=== PATIENT | male | born 1975 | race Caucasian/White ===

== ENCOUNTER 2017-11-22 11:36 | Inpatient (IN) | payer BC ==
[2017-11-22] MEDS ORDERED: Pantoprazole 40 MG Vial IVPUSH ONE (11:46)
[2017-11-22] MEDS ORDERED: Morphine 2 MG/ML Syringe IVPUSH ONE (11:46)
[2017-11-22] MEDS ORDERED: Sodium Chloride 0.9% 1,000 ML IV ONE (11:46)
[2017-11-22] MEDS ORDERED: Aspirin 81 MG Tab.Chew PO ONE (11:46)
--- NOTE | 2017-11-22 11:49 | EDM.PDOC ---
ED HPI GENERAL MEDICAL PROBLEM - General Chief Complaint: Abdominal Pain Stated Complaint: UPPER ABD PAIN Time Seen by Provider: 11/22/17 11:48 Source of Information: Reports: Patient - History of Present Illness INITIAL COMMENTS - FREE TEXT/NARRATIVE: HISTORY AND PHYSICAL: History of present illness: [Patient presents with epigastric pain 8 out of 10 knee is slightly diaphoretic on arrival with some nausea no vomiting chills sweats no actual chest pain shortness of breath headache dizziness or palpitation no bowel or urine symptoms ] Review of systems: As per history of present illness and below otherwise all systems reviewed and negative. Past medical history: As per history of present illness and as reviewed below otherwise noncontributory. Surgical history: As per history of present illness and as reviewed below otherwise noncontributory. Social history: No reported history of drug or alcohol abuse. Family history: As per history of present illness and as reviewed below otherwise noncontributory. Physical exam: HEENT: Atraumatic, normocephalic, pupils reactive, negative for conjunctival pallor or scleral icterus, mucous membranes moist, throat clear, neck supple, nontender, trachea midline. Lungs: Clear to auscultation, breath sounds equal bilaterally, chest nontender. Heart: S1S2, regular, negative for clicks, rubs, or JVD. Abdomen: Soft, nondistended, multifocal tenderness on deep palpation Negative for masses or hepatosplenomegaly. Negative for costovertebral tenderness. Pelvis: Stable nontender. Genitourinary: Deferred. Rectal: Deferred. Extremities: Atraumatic, negative for cords or calf pain. Neurovascular unremarkable. Neuro: Awake, alert, oriented. Cranial nerves II through XII unremarkable. Cerebellum unremarkable. Motor and sensory unremarkable throughout. Exam nonfocal. Diagnostics: [CBC CMP lipase troponin EKG Chest 1 view ] Therapeutics: [Normal saline bolus Aspirin 324 mg chewable Morphine 2 mg IV ] Impression: Cholelithiasis [Epigastric pain] Definitive disposition and diagnosis as appropriate pending reevaluation and review of above. Upper Abdomen Pain Score (Numeric/FACES): 4 - Related Data Allergies Allergy/AdvReac Type Severity Reaction Status Date / Time No Known Allergies Allergy Verified 11/22/17 12:09 Home Meds: Home Meds . [No Known Home Meds] 11/22/17 [History] ED ROS GENERAL - Review of Systems Review Of Systems: ROS reveals no pertinent complaints other than HPI. ED EXAM, GENERAL - Physical Exam Exam: See Below Course - Vital Signs Last Recorded V/S: Last Vital Signs Temp 97.1 F 11/22/17 12:27 Pulse 81 11/22/17 12:27 Resp 18 11/22/17 12:27 BP 144/81 H 11/22/17 12:27 Pulse Ox 100 11/22/17 12:27 - Orders/Labs/Meds Orders: Active Orders 24 hr Category Date Time Status EKG Documentation Completion [RC] STAT Care 11/22/17 11:45 Active Abdomen Ltd [US] Stat Exams 11/22/17 13:39 Ordered Nitroglycerin [Nitrostat] Med 11/22/17 12:15 Active 0.4 mg SL Q5M PRN Sodium Chloride 0.9% [Normal Saline] 1,000 ml Med 11/22/17 14:00 Active IV STAT Medication Orders Sodium Chloride (Normal Saline) 1,000 mls @ 125 mls/hr IV STAT KAREN Nitroglycerin (Nitrostat) 0.4 mg SL Q5M PRN PRN Reason: Chest Pain Last Admin: 11/22/17 12:24 Dose: 0.4 mg Admin: 11/22/17 12:19 Dose: 0.4 mg Labs: Laboratory Tests 11/22/17 11/22/17 11/22/17 Range/Units 11:59 11:59 13:19 WBC 16.18 H (4.0-11.0) K/uL RBC 4.91 (4.50-5.90) M/uL Hgb 15.6 (13.0-17.0) g/dL Hct 44.7 (38.0-50.0) % MCV 91.0 (80.0-98.0) fL MCH 31.8 (27.0-32.0) pg MCHC 34.9 (31.0-37.0) g/dL RDW Std Deviation 45.2 (28.0-62.0) fl RDW Coeff of Royal 14 (11.0-15.0) % Plt Count 279 (150-400) K/uL MPV 9.70 (7.40-12.00) fL Neut % (Auto) 82.4 H (48.0-80.0) % Lymph % (Auto) 13.4 L (16.0-40.0) % [place] % (Auto) 3.8 (0.0-15.0) % Eos % (Auto) 0.2 (0.0-7.0) % Baso % (Auto) 0.2 (0.0-1.5) % Neut # (Auto) 13.3 H (1.4-5.7) K/uL Lymph # (Auto) 2.2 (0.6-2.4) K/uL [place] # (Auto) 0.6 (0.0-0.8) K/uL Eos # (Auto) 0.0 (0.0-0.7) K/uL Baso # (Auto) 0.0 (0.0-0.1) K/uL Nucleated RBC % 0.0 /100WBC Nucleated RBCs # 0 K/uL Sodium 136 (136-148) mmol/L Potassium 4.2 (3.5-5.1) mmol/L Chloride 100 (98-107) mmol/L Carbon Dioxide 27.9 (21.0-32.0) mmol/L BUN 11 (7.0-18.0) mg/dL Creatinine 0.8 (0.8-1.3) mg/dL Est Cr Clr Drug Dosing 146.17 mL/min Estimated GFR (MDRD) > 60.0 ml/min Glucose 108 H (74-106) mg/dL Calcium 9.1 (8.5-10.1) mg/dL Total Bilirubin 0.4 (0.2-1.0) mg/dL AST 34 (15-37) IU/L ALT 60 (14-63) IU/L Alkaline Phosphatase 46 (46-116) U/L Troponin I < 0.050 (0.000-0.056) ng/mL Total Protein 7.6 (6.4-8.2) g/dL Albumin 4.3 (3.4-5.0) g/dL Globulin 3.3 (2.0-3.5) g/dL Albumin/Globulin Ratio 1.3 (1.3-2.8) Lipase 110 (73-393) U/L Urine Color ORANGE Urine Appearance CLEAR Urine pH 8.0 (5.0-8.0) Ur Specific [place]ek 1.010 (1.001-1.035) Urine Protein NEGATIVE (NEGATIVE) mg/dL Urine Glucose (UA) NEGATIVE (NEGATIVE) mg/dL Urine Ketones 15 H (NEGATIVE) mg/dL Urine Occult Blood NEGATIVE (NEGATIVE) Urine Nitrite NEGATIVE (NEGATIVE) Urine Bilirubin NEGATIVE (NEGATIVE) Urine Urobilinogen 0.2 (<2.0) EU/dL Ur Leukocyte Esterase NEGATIVE (NEGATIVE) Urine RBC 0-1 (0-2/HPF) Urine WBC 0-1 (0-5/HPF) Ur Epithelial Cells RARE (NONE-FEW) Urine Bacteria RARE (NEGATIVE) Meds: Medications Generic Name Dose Route Start Last Admin Trade Name Freq PRN Reason Stop Dose Admin Sodium Chloride 1,000 mls @ 125 mls/hr 11/22/17 14:00 Normal Saline IV STAT KAREN Nitroglycerin 0.4 mg 11/22/17 12:15 11/22/17 12:24 Nitrostat SL 0.4 mg Q5M PRN Administration Chest Pain Discontinued Medications Generic Name Dose Route Start Last Admin Trade Name Freq PRN Reason Stop Dose Admin Aspirin 324 mg 11/22/17 11:46 11/22/17 12:01 Aspirin PO 11/22/17 11:47 324 mg ONETIME ONE Administration Sodium Chloride 1,000 mls @ 999 mls/hr 11/22/17 11:46 11/22/17 12:02 Normal Saline IV 11/22/17 12:46 999 mls/hr STAT ONE Administration Iopamidol 100 ml 11/22/17 13:07 11/22/17 13:08 Isovue Multipack-370 (76%) IVPUSH 11/22/17 13:08 100 ml ONETIME STA Administration Ketorolac Tromethamine 30 mg 11/22/17 13:51 Toradol IVPUSH 11/22/17 13:52 ONETIME ONE Morphine Sulfate 2 mg 11/22/17 11:46 11/22/17 13:06 Morphine IVPUSH 11/22/17 11:47 Not Given ONETIME ONE Pantoprazole Sodium 80 mg 11/22/17 11:46 11/22/17 12:02 Protonix Iv IVPUSH 11/22/17 11:47 80 mg .BOLUS ONE Administration Departure - Departure Time of Disposition: 14:02 Disposition: Refer to Observation Condition: Fair Clinical Impression: Cholelithiasis - Discharge Information Referrals: Naomie,Erika A, [employer] [Primary Care Provider] - Forms: ED Department Discharge - My Orders Last 24 Hours: My Active Orders 11/22/17 11:45 EKG Documentation Completion [RC] STAT 11/22/17 12:15 Nitroglycerin [Nitrostat] 0.4 mg SL Q5M PRN 11/22/17 13:39 Abdomen Ltd [US] Stat 11/22/17 14:00 Sodium Chloride 0.9% [Normal Saline] 1,000 ml IV STAT - Assessment/Plan Last 24 Hours: My Active Orders 11/22/17 11:45 EKG Documentation Completion [RC] STAT 11/22/17 12:15 Nitroglycerin [Nitrostat] 0.4 mg SL Q5M PRN 11/22/17 13:39 Abdomen Ltd [US] Stat 11/22/17 14:00 Sodium Chloride 0.9% [Normal Saline] 1,000 ml IV STAT
[2017-11-22] MEDS: Nitroglycerin 0.4 MG Tab.SL SL PRN ×2 (12:19→12:24)
--- NOTE | 2017-11-22 12:25 | CR ---
EXAMINATION: Portable chest radiograph. HISTORY: Pain. FINDINGS: The trachea is midline. The cardiomediastinal silhouette is within normal limits. No pulmonary infilt rates, effusions or pneumothorax. Osseous structures appear unremarkable. IMPRESSION: No acute cardiopulmonary process.
[2017-11-22 12:31] LABS: CHLORIDE,CL 100 mmol/L (98-107); SODIUM,NA 136 mmol/L (136-148)
[2017-11-22] MEDS ORDERED: Iopamidol 755 MG/ML 500 ML Multipack Bottle IVPUSH STA (13:07)
--- NOTE | 2017-11-22 13:32 | CT ---
CT of the abdomen and pelvis with contrast. HISTORY: Pain TECHNIQUE: Axial CT images were obtained of the abdomen and pelvis following administration of Isovue -370 without complication. Coronal and sagittal reconstructions obtained. FINDINGS: The lung bases are clear. No pleural effusion or pneumothorax. The liver, spleen, adrenal glands, and pancreas appear normal. Cholelithiasis without evidence of cho lecystitis. No bulky retroperitoneal lymphadenopathy or abdominal ascites. The kidneys enhance and function symmetrically without evidence of obstructive uropathy. The large and small bowel are normal in caliber without evidence of obstruction. No focal pericolonic inflammation or stranding. The Appendix is normal. No bulky pelvic lymphadenopathy or free pelvic fl uid. Urinary bladder is normal. No suspicious osseous abnormalities identified. IMPRESSION: 1. Cholelithiasis without evidence of cholecystitis. 2. Otherwise no acute findings within the abdomen or pelvis.
[2017-11-22] MEDS ORDERED: Ketorolac 30 MG/ML SDV IVPUSH ONE (13:51)
[2017-11-22] MEDS ORDERED: Sodium Chloride 0.9% 1,000 ML IV SCH (14:00)
[2017-11-22] MEDS ORDERED: Alum Hydrox/Mag Hydrox/Simeth 15 ML, Lidocaine 2% 5 ML PO ONE ×4 (14:37→15:15)
--- NOTE | 2017-11-22 15:05 | PCM.CONS ---
H&P History of Present Illness - General Date of Service: 11/22/17 Admit Problem/Dx: Admission Diagnosis/Problem Admission Diagnosis/Problem Cholelithiasis Source of Information: Patient History Limitations: Reports: No Limitations - History of Present Illness Initial Comments - Free Text/Narative: Patient is a 42 year old male who presents to the ED with epigastric pain. He woke up early this morning and noticed it. It became worse throughout the day. He tried using OTC anti-acids with no improvement. The pain seemed to radiate to the right upper abdomen. He then started vomiting with any po intake. He has been experiencing less severe post prandial pain over the past couple months, but mainly with fiber supplements. It has never been this severe. He denies any unexpected weight loss, fevers, chills, hematochezia or melena. Upper Abdomen Pain Score (Numeric/FACES): 4 - Related Data Allergies/Adverse Reactions: Allergies Allergy/AdvReac Type Severity Reaction Status Date / Time No Known Allergies Allergy Verified 11/22/17 12:09 Home Medications: Home Meds . [No Known Home Meds] 11/22/17 [History] Past Medical History - Past Health History Medical/Surgical History: Denies Medical/Surgical History - Past Surgical History Dermatological Surgical History: Reports: Skin Biopsy Social & Family History - Tobacco Use Smoking Status *Q: Never Smoker Tobacco Use Within Last Twelve Months: Smokeless Tobacco (<1 can per day) Second Hand Smoke Exposure: No - Alcohol Use Days Per Week of Alcohol Use: 5 Number of Drinks Per Day: 6 Total Drinks Per Week: 30 - Recreational Drug Use Recreational Drug Use: No H&P Review of Systems - Review of Systems: Review Of Systems: ROS reveals no pertinent complaints other than HPI. Exam - Exam Exam: See Below - Vital Signs Vital Signs: Last Vital Signs Temp 36.9 C 11/22/17 14:12 Pulse 59 L 11/22/17 14:48 Resp 18 11/22/17 14:48 BP 149/81 H 11/22/17 14:48 Pulse Ox 98 11/22/17 14:48 Weight: 122.8 kg - Exam General: Alert, Oriented HEENT: Conjunctiva Clear, Posterior Pharynx Clear, Pupils Equal, Pupils Reactive Neck: Supple, Trachea Midline Lungs: Clear to Auscultation, Normal Respiratory Effort Cardiovascular: Regular Rate, Regular Rhythm GI/Abdominal Exam: Soft, No Distention, No Mass, Tender (mild tenderness in RUQ. No richards's sign. ) - Patient Data Result Diagrams: 11/22/17 11:59 11/22/17 11:59 Consult PN Assessment/Plan (1) Epigastric pain SNOMED Code(s): 23489832 Code(s): R10.13 - EPIGASTRIC PAIN Current Visit: Yes Problem List Initiated/Reviewed/Updated: Yes My Orders Last 24 Hours: My Active Orders 11/22/17 14:41 HELICOBACTER PYLORI AB IGG [CHEM] Routine 11/22/17 14:56 Abdomen Ltd [US] Routine Plan: My differential includes gastritis, duodenitis, peptic ulcer disease and/or symptomatic cholelithiasis. CT shows no evidence of cholecystitis. He has a leukocytosis that maybe from nausea, vomiting, and dehydration. I ordered an H pylori antigen test as well as a RUQ US to be performed. Will admit to medicine service. Patient to be kept NPO, continue IVF resuscitation, and can start on IV zosyn. Would continue IV protonix until able to tolerate a diet. Will continue to follow. Please call with questions or concerns.
[2017-11-22] MEDS: Piperacillin/Tazobactam 3.375 GM in Sodium Chloride 0.9% 50 ML IV SCH ×2 (15:19→20:41)
[2017-11-22] MEDS: Enoxaparin 40 MG/0.4 ML Syringe SUBCUT SCH ×2 (15:20→15:29)
[2017-11-22] MEDS ORDERED: HYDROmorphone 1 MG/ML Syringe IVPUSH PRN (15:20)
--- NOTE | 2017-11-22 15:28 | PCM.HP ---
H&P History of Present Illness - General Date of Service: 11/22/17 Admit Problem/Dx: Admission Diagnosis/Problem Admission Diagnosis/Problem Cholelithiasis Source of Information: Patient History Limitations: Reports: No Limitations - History of Present Illness Initial Comments - Free Text/Narative: This 42 year old male, otherwise healthy, presented to the ED today with epigastric/RUQ, he reports this started this morning. He says he has had this pain off and on, attributed it to taking fiber to help with constipation and drinking more water helps. He doesn't correlate it with eating or after eating. He did eat a burrito with young on it last night. This morning after drinking the water, the pain continued and escalated. He vomited twice, bile, no blood or coffee grounds. He contacted his and decided to come to the ED for evaluation. He denies fevers, chills or URI. No other abdominal pain and no urinary symptoms. He reports nausea and burping a lot, not necessarily heart burn. He was given some Protonix in the ED which helped some. He has had no diarrhea, black or bloody BMs, and no previous abdominal surgeries. In the ED leukocytosis noted at 16,000, BMP WNL. Ua negative. CT revealed cholelithasis without evidence of cholecystitis. CXR negative. EKG SR. He will be admitted observation for cholelithiasis with leukocytosis and pain. Dr Mendes consulted in the ED and will see patient once he arrives to Med/Surg No PCP. Upper Abdomen Pain Score (Numeric/FACES): 4 - Related Data Allergies/Adverse Reactions: Allergies Allergy/AdvReac Type Severity Reaction Status Date / Time No Known Allergies Allergy Verified 11/22/17 12:09 Home Medications: Home Meds . [No Known Home Meds] 11/22/17 [History] Past Medical History - Past Health History Medical/Surgical History: Denies Medical/Surgical History Cardiovascular History: Reports: None. Denies: CAD, High Cholesterol, Hypertension Respiratory History: Reports: None. Denies: Asthma, COPD Gastrointestinal History: Reports: None. Denies: Bowel Obstruction, GERD, GI Bleed Genitourinary History: Reports: None. Denies: Acute Renal Failure, Chronic Renal Insuffiency Musculoskeletal History: Reports: None Psychiatric History: Reports: None Endocrine/Metabolic History: Reports: Obesity/BMI 30+. Denies: Diabetes, Type II, Hypothyroidism - Infectious Disease History Infectious Disease History: Reports: None - Past Surgical History GI Surgical History: Reports: None Dermatological Surgical History: Reports: Skin Biopsy Social & Family History - Tobacco Use Smoking Status *Q: Current Every Day Smoker Tobacco Use Within Last Twelve Months: Smokeless Tobacco (<1 tin daily) Second Hand Smoke Exposure: No - Alcohol Use Days Per Week of Alcohol Use: 5 Number of Drinks Per Day: 6 Total Drinks Per Week: 30 Alcohol Use Frequency: Daily (nearly daily, every other day) - Recreational Drug Use Recreational Drug Use: No - Living Situation & Occupation Living situation: Reports: Occupation: Employed (Works for [employer]) H&P Review of Systems - Review of Systems: Review Of Systems: See Below General: Reports: No Symptoms. Denies: Fever, Chills, Malaise, Weakness, Fatigue HEENT: Reports: No Symptoms. Denies: Headaches, Sinus Congestion, Sore Throat, Vertigo Pulmonary: Reports: No Symptoms. Denies: Shortness of Breath, Cough, Sputum Cardiovascular: Reports: No Symptoms. Denies: Chest Pain, Palpitations, Edema Gastrointestinal: Reports: Abdominal Pain (epigastric/RUQ), Constipation, Nausea , Vomiting. Denies: Black Stool, Bloody Stool, Diarrhea, Hematemesis, Hematochezia, Melena Genitourinary: Reports: No Symptoms. Denies: Dysuria, Frequency Musculoskeletal: Reports: No Symptoms Neurological: Reports: No Symptoms Exam - Exam Exam: See Below - Vital Signs Vital Signs: Last Vital Signs Temp 98.4 F 11/22/17 14:12 Pulse 59 L 11/22/17 14:48 Resp 18 11/22/17 14:48 BP 149/81 H 11/22/17 14:48 Pulse Ox 98 11/22/17 14:48 Weight: 122.8 kg - Exam General: Alert, Oriented, Cooperative HEENT: Conjunctiva Clear, Mucosa Moist & [place], Pupils Reactive Lungs: Clear to Auscultation, Normal Respiratory Effort Cardiovascular: Regular Rate, Regular Rhythm GI/Abdominal Exam: Normal Bowel Sounds, Soft, No Organomegaly, No Distention, No Abnormal Bruit, No Mass, Pelvis Stable, Tender (Epigastric and RUQ tenderness ), Other (patient noted to be burping frequently when in room.). No: Guarding, Rigid Extremities: Normal Inspection, Normal Range of Motion, Non-Tender, No Pedal Edema, Normal Capillary Refill Neuro Extensive - Mental Status: Alert, Oriented x3, Normal Mood/Affect, Normal Cognition Neuro Extensive - Motor, Sensory, Reflexes: CN II-XII Intact Psychiatric: Alert, Normal Affect, Normal Mood - Patient Data Result Diagrams: 11/22/17 11:59 11/22/17 11:59 *Q Meaningful Use (ADM) - VTE *Q VTE Criteria *Q: - VTE Risk Assess *Q Each Risk Factor Represents 1 Point: Age 41 - 59 years Total Score 1 Point Risk Factors: 1 Each Risk Factor Represents 2 Points: None Total Score 2 Point Risk Factors: 0 Each Risk Factor Represents 3 Points: None Total Score 3 Point Risk Factors: 0 Each Risk Factor Represents 5 Points: None Total Score 5 Point Risk Factors: 0 Venous Thromboembolism Risk Factor Score *Q: 1 - Stroke *Q Stroke Criteria *Q: - AMI *Q AMI Criteria *Q: - Problem List (1) Epigastric pain SNOMED Code(s): 64484419 ICD Code: R10.13 - EPIGASTRIC PAIN Status: Acute Current Visit: Yes (2) Cholelithiasis SNOMED Code(s): 934577205 ICD Code: K80.20 - CALCULUS OF GALLBLADDER W/O CHOLECYSTITIS W/O OBSTRUCTION Status: Acute Current Visit: Yes Qualifiers: Cholelithiasis location: gallbladder Cholecystitis presence: without cholecystitis Biliary obstruction: without biliary obstruction Qualified Code(s): K80.20 - Calculus of gallbladder without cholecystitis without obstruction (3) Nausea & vomiting SNOMED Code(s): 28173054 ICD Code: R11.2 - NAUSEA WITH VOMITING, UNSPECIFIED Status: Acute Current Visit: Yes Qualifiers: Vomiting type: unspecified Vomiting Intractability: non-intractable Qualified Code(s): R11.2 - Nausea with vomiting, unspecified Problem List Initiated/Reviewed/Updated: Yes Orders Last 24hrs: Active Orders 24 hr Category Date Time Status Intake and Output [RC] QSHIFT Care 11/22/17 14:36 Ordered Oxygen Therapy [RC] PRN Care 11/22/17 14:35 Ordered Up ad Mami [RC] ASDIRECTED Care 11/22/17 14:35 Ordered VTE/DVT Education [RC] PER UNIT ROUTINE Care 11/22/17 14:35 Ordered Vital Signs [RC] Q4H Care 11/22/17 14:35 Ordered Nothing Per Oral Diet [DIET] Diet 11/22/17 Dinner Ordered Abdomen Ltd [US] Routine Exams 11/22/17 14:56 Ordered Alum Hydrox/Mag Hydrox/Simeth [Mag-Al Plus] 15 ml Med 11/22/17 15:15 Active Lidocaine 2% [Xylocaine 2% Viscous] 5 ml PO ONETIME Enoxaparin [Lovenox] Med 11/23/17 09:00 Ordered 30 mg SUBCUT DAILY Piperacillin/Tazobactam [Piperacil-Tazobact] 3.375 gm Med 11/22/17 14:45 Ordered Sodium Chloride 0.9% [Normal Saline] 50 ml IV Q6H Resuscitation Status Routine Resus Stat 11/22/17 14:35 Ordered Medication Orders Al Hydroxide/Mg Hydroxide 15 (ml/ Lidocaine HCl 5 ml) 0 ml PO ONETIME ONE Stop: 11/22/17 15:16 Enoxaparin Sodium (Lovenox) 40 mg SUBCUT Q24H KAREN Sodium Chloride (Normal Saline) 1,000 mls @ 125 mls/hr IV STAT KAREN Last Admin: 11/22/17 14:08 Dose: 125 mls/hr Piperacillin Sod/Tazobactam (Sod 3.375 gm/ Sodium Chloride) 50 mls @ 100 mls/ hr IV Q6H KAREN Nitroglycerin (Nitrostat) 0.4 mg SL Q5M PRN PRN Reason: Chest Pain Last Admin: 11/22/17 12:24 Dose: 0.4 mg Admin: 11/22/17 12:19 Dose: 0.4 mg Assessment/Plan Comment:: This 42 year old male admitted with epigastric/RUQ pain and cholelithiasis 1. RUQ/epigastric pain: Cholelithiasis noted on Abd CT. Dr Mendes consulted, I appreciate her assistance with this case. Will monitor tonight. IVFs, bowel rest and Zosyn due to leukocytosis and cholelithiasis. Dilaudid and Toradol for pain. Protonix for some heartburn, will also give GI cocktail. H. pylori negative. Abdominal US pending. Educated on low fat diet on discharged. VTE prophylaxis: Lovenox. Dispo: Pending improvement, 1-2 days.
[2017-11-22] MEDS: Ketorolac 15 MG/ML SDV IVPUSH PRN (20:51)
[2017-11-22] MEDS: Sodium Chloride 0.9% 1,000 ML IV SCH (21:59)
[2017-11-23] MEDS: Piperacillin/Tazobactam 3.375 GM in Sodium Chloride 0.9% 50 ML IV SCH ×4 (03:08→20:14)
[2017-11-23] MEDS: Ketorolac 15 MG/ML SDV IVPUSH PRN ×2 (03:14→20:27)
[2017-11-23 06:08] LABS: CHLORIDE,CL 105 mmol/L (98-107); SODIUM,NA 141 mmol/L (136-148)
[2017-11-23] MEDS: Sodium Chloride 0.9% 1,000 ML IV SCH ×2 (07:45→17:40)
--- NOTE | 2017-11-23 08:15 | PCM.PN ---
- General Info Date of Service: 11/23/17 Admission Dx/Problem (Free Text): Admission Diagnosis/Problem Admission Diagnosis/Problem Cholelithiasis Subjective Update: Feeling much better today. Abdominal pain is better, on first rounds. Then on second rounds with Dr Iyer, he reports slight tenderness now. No nausea or vomiting. Functional Status: Reports: Pain Controlled, Tolerating Diet, Ambulating, Urinating - Review of Systems General: Reports: No Symptoms. Denies: Fever, Weakness, Fatigue Pulmonary: Reports: No Symptoms. Denies: Shortness of Breath Cardiovascular: Reports: No Symptoms. Denies: Chest Pain Gastrointestinal: Reports: Abdominal Pain (slight tenderness to RUQ). Denies: Nausea, Vomiting Genitourinary: Reports: No Symptoms. Denies: Dysuria, Frequency, Burning Skin: Denies: Cyanosis Neurological: Reports: No Symptoms Psychiatric: Reports: No Symptoms. Denies: Confusion - Patient Data Vitals - Most Recent: Last Vital Signs Temp 98.9 F 11/23/17 07:44 Pulse 73 11/23/17 07:44 Resp 18 11/23/17 07:44 BP 127/76 11/23/17 07:44 Pulse Ox 97 11/23/17 07:44 Weight - Most Recent: 122.8 kg I&O - Last 24 Hours: Intake & Output 11/22/17 11/23/17 11/23/17 22:59 06:59 14:59 Intake Total 1422 50 Output Total 1500 Balance 1422 -1450 Lab Results Last 24 Hours: Laboratory Results - last 24 hr 11/23/17 11/23/17 Range/Units 04:49 04:49 WBC 15.05 H (4.0-11.0) K/uL RBC 4.84 (4.50-5.90) M/uL Hgb 15.2 (13.0-17.0) g/dL Hct 44.0 (38.0-50.0) % MCV 90.9 (80.0-98.0) fL MCH 31.4 (27.0-32.0) pg MCHC 34.5 (31.0-37.0) g/dL RDW Std Deviation 45.9 (28.0-62.0) fl RDW Coeff of Royal 14 (11.0-15.0) % Plt Count 260 (150-400) K/uL MPV 10.00 (7.40-12.00) fL Neut % (Auto) 68.8 (48.0-80.0) % Lymph % (Auto) 19.6 (16.0-40.0) % [place] % (Auto) 11.0 (0.0-15.0) % Eos % (Auto) 0.5 (0.0-7.0) % Baso % (Auto) 0.1 (0.0-1.5) % Neut # (Auto) 10.4 H (1.4-5.7) K/uL Lymph # (Auto) 3.0 H (0.6-2.4) K/uL [place] # (Auto) 1.7 H (0.0-0.8) K/uL Eos # (Auto) 0.1 (0.0-0.7) K/uL Baso # (Auto) 0.0 (0.0-0.1) K/uL Nucleated RBC % 0.0 /100WBC Nucleated RBCs # 0 K/uL Sodium 141 (136-148) mmol/L Potassium 3.6 (3.5-5.1) mmol/L Chloride 105 (98-107) mmol/L Carbon Dioxide 25.9 (21.0-32.0) mmol/L BUN 7 (7.0-18.0) mg/dL Creatinine 0.8 (0.8-1.3) mg/dL Est Cr Clr Drug Dosing 146.17 mL/min Estimated GFR (MDRD) > 60.0 ml/min Glucose 109 H (74-106) mg/dL Calcium 8.5 (8.5-10.1) mg/dL Total Bilirubin 1.1 H (0.2-1.0) mg/dL AST 23 (15-37) IU/L ALT 44 (14-63) IU/L Alkaline Phosphatase 39 L (46-116) U/L Total Protein 6.6 (6.4-8.2) g/dL Albumin 3.4 (3.4-5.0) g/dL Globulin 3.2 (2.0-3.5) g/dL Albumin/Globulin Ratio 1.1 L (1.3-2.8) Med Orders - Current: Current Medications Hydromorphone HCl (Dilaudid) 1 mg IVPUSH Q3H PRN PRN Reason: Pain Piperacillin Sod/Tazobactam (Sod 3.375 gm/ Sodium Chloride) 50 mls @ 100 mls/ hr IV Q6H [facility] Last Admin: 11/23/17 03:08 Dose: 100 mls/hr Sodium Chloride (Normal Saline) 1,000 mls @ 125 mls/hr IV ASDIRECTED [facility] Last Admin: 11/23/17 07:45 Dose: 125 mls/hr Ketorolac Tromethamine (Toradol) 15 mg IVPUSH Q6H PRN PRN Reason: Pain Stop: 11/27/17 15:21 Last Admin: 11/23/17 03:14 Dose: 15 mg Nitroglycerin (Nitrostat) 0.4 mg SL Q5M PRN PRN Reason: Chest Pain Last Admin: 11/22/17 12:24 Dose: 0.4 mg Pantoprazole Sodium (Protonix Iv) 40 mg IVPUSH DAILY [facility] Discontinued Medications Aspirin (Aspirin) 324 mg PO ONETIME ONE Stop: 11/22/17 11:47 Last Admin: 11/22/17 12:01 Dose: 324 mg Al Hydroxide/Mg Hydroxide 15 (ml/ Lidocaine HCl 5 ml) 0 ml PO ONETIME ONE Stop: 11/22/17 14:38 Last Admin: 11/22/17 15:31 Dose: Not Given Al Hydroxide/Mg Hydroxide 15 (ml/ Lidocaine HCl 5 ml) 0 ml PO ONETIME ONE Stop: 11/22/17 15:16 Last Admin: 11/22/17 15:27 Dose: 1 each Enoxaparin Sodium (Lovenox) 40 mg SUBCUT Q24H [facility] Last Admin: 11/22/17 15:29 Dose: Not Given Sodium Chloride (Normal Saline) 1,000 mls @ 999 mls/hr IV STAT ONE Stop: 11/22/17 12:46 Last Admin: 11/22/17 12:02 Dose: 999 mls/hr Sodium Chloride (Normal Saline) 1,000 mls @ 125 mls/hr IV STAT [facility] Last Admin: 11/22/17 14:08 Dose: 125 mls/hr Iopamidol (Isovue Multipack-370 (76%)) 100 ml IVPUSH ONETIME STA Stop: 11/22/17 13:08 Last Admin: 11/22/17 13:08 Dose: 100 ml Ketorolac Tromethamine (Toradol) 30 mg IVPUSH ONETIME ONE Stop: 11/22/17 13:52 Last Admin: 11/22/17 14:08 Dose: 30 mg Morphine Sulfate (Morphine) 2 mg IVPUSH ONETIME ONE Stop: 11/22/17 11:47 Last Admin: 11/22/17 13:06 Dose: Not Given Pantoprazole Sodium (Protonix Iv) 80 mg IVPUSH .BOLUS ONE Stop: 11/22/17 11:47 Last Admin: 11/22/17 12:02 Dose: 80 mg - Exam Quality Assessment: DVT Prophylaxis (SCDs, declined Lovenox. ) General: Alert, Oriented, Cooperative, No Acute Distress Neck: Supple Lungs: Clear to Auscultation, Normal Respiratory Effort Cardiovascular: Regular Rate, Regular Rhythm GI/Abdominal Exam: Normal Bowel Sounds, Soft, No Organomegaly, No Distention, No Abnormal Bruit, No Mass, Pelvis Stable, Tender (RUQ) Extremities: Normal Inspection, Normal Range of Motion, Non-Tender, No Pedal Edema, Normal Capillary Refill Neurological: No New Focal Deficit Psy/Mental Status: Alert, Normal Affect, Normal Mood - Problem List & Annotations (1) Epigastric pain SNOMED Code(s): 33942215 Code(s): R10.13 - EPIGASTRIC PAIN Status: Acute Current Visit: Yes (2) Cholelithiasis SNOMED Code(s): 604761191 Code(s): K80.20 - CALCULUS OF GALLBLADDER W/O CHOLECYSTITIS W/O OBSTRUCTION Status: Acute Current Visit: Yes Qualifiers: Cholelithiasis location: gallbladder Cholecystitis presence: without cholecystitis Biliary obstruction: without biliary obstruction Qualified Code(s): K80.20 - Calculus of gallbladder without cholecystitis without obstruction (3) Nausea & vomiting SNOMED Code(s): 00118718 Code(s): R11.2 - NAUSEA WITH VOMITING, UNSPECIFIED Status: Acute Current Visit: Yes Qualifiers: Vomiting type: unspecified Vomiting Intractability: non-intractable Qualified Code(s): R11.2 - Nausea with vomiting, unspecified - Problem List Review Problem List Initiated/Reviewed/Updated: Yes - My Orders Last 24 Hours: My Active Orders 11/22/17 14:35 Up ad Mami [RC] ASDIRECTED VTE/DVT Education [RC] PER UNIT ROUTINE Vital Signs [RC] Q4H Resuscitation Status Routine 11/22/17 14:36 Intake and Output [RC] Q12H 11/22/17 15:00 Piperacillin/Tazobactam [Piperacil-Tazobact] 3.375 gm Sodium Chloride 0.9% [ Normal Saline] 50 ml IV Q6H 11/22/17 15:20 HYDROmorphone [Dilaudid] 1 mg IVPUSH Q3H PRN Ketorolac [Toradol] 15 mg IVPUSH Q6H PRN 11/22/17 15:30 Sodium Chloride 0.9% [Normal Saline] 1,000 ml IV ASDIRECTED 11/22/17 Dinner Nothing Per Oral Diet [DIET] 11/23/17 08:01 Antiembolic Devices [RC] PER UNIT ROUTINE SCD [Sequential Compression Device] [OM.PC] Routine 11/23/17 08:04 Structural Manager Discontinue [Cardiac Monitoring Discontinue] [RC] Click to Edit 11/23/17 09:00 Pantoprazole [ProTONIX IV] 40 mg IVPUSH DAILY 11/23/17 12:00 CBC WITH AUTO DIFF [HEME] Timed COMPREHENSIVE METABOLIC PN,CMP [CHEM] Timed - Plan Plan:: This 42 year old male admitted with epigastric/RUQ pain and cholelithiasis 1. RUQ/epigastric pain: Cholelithiasis noted on Abd CT. Abd U/S revealed distended gallbladder with multiple large gallstones and gallbladder wall thickening, worrisome for cholecystitis. Normal common bile duct. Bilirubin elevated from 0.4 to 1.1 this morning[address] Discussed with Dr Mendes, will order MRCP today. Leukocytosis 15,000 today, afebrile. Continue IVFs, bowel rest and Zosyn due to leukocytosis and cholelithiasis. Dilaudid and Toradol for pain. Protonix Daily. VTE prophylaxis: Declined Lovenox. Encouraged to wear SCDs. Dispo: Pending improvement, 1-2 days.
--- NOTE | 2017-11-23 10:28 | US ---
EXAM DATE: 11/22/17 PATIENT'S AGE: 42 Patient: ROGER SQUIRES Facility: [place], [place] Site . Site : [id number] Study: US Abdomen Right GB-11/22/2017 5:10:57 PM Ordering Physician: Jaylon David Final Report: INDICATION: Right upper quadrant pain TECHNIQUE: Ultrasound abdomen limited. Sonographic images of the right upper quadrant were obtained using mtz-scale and color Doppler images. COMPARISON: None FINDINGS: Liver: Hepatomegaly. No masses. No intrahepatic biliary dilatation. Gallbladder: Distended gallbladder with multiple large gallstones with gallbladder wall thickening. No pericholecystic fluid. Common bile duct: 3 mm. Pancreas: Normal. The pancreatic tail was not well visualized. Right kidney: 12.0 cm. Normal echotexture and cortex. No masses, stones, or hydronephrosis. IMPRESSION: Distended gallbladder with multiple large gallstones and gallbladder wall thickening. Findings worrisome for cholecystitis. Normal common bile duct. Hepatomegaly. Dictated by Marcos Hand MD @ Nov 22 2017 5:57PM (Electronic Signature) Report Signed by Proxy. MARBELLA
[2017-11-23] MEDS: Pantoprazole 40 MG Vial IVPUSH SCH (10:30)
[2017-11-23] MEDS ORDERED: Gadobenate Dimeglumine 529 MG/ML 20 ML SDV IVPUSH STA (13:20)
[2017-11-23] MEDS ORDERED: Temazepam 15 MG Cap PO PRN (15:54)
--- NOTE | 2017-11-23 17:05 | PCM.PN ---
- General Info Date of Service: 11/23/17 Functional Status: Reports: Pain Controlled, Ambulating, Urinating - Review of Systems General: Reports: No Symptoms Pulmonary: Reports: No Symptoms Cardiovascular: Reports: No Symptoms Gastrointestinal: Reports: No Symptoms - Patient Data Vitals - Most Recent: Last Vital Signs Temp 37.3 C 11/23/17 16:00 Pulse 64 11/23/17 16:00 Resp 16 11/23/17 16:00 BP 136/85 11/23/17 16:00 Pulse Ox 94 L 11/23/17 16:00 Weight - Most Recent: 122.8 kg I&O - Last 24 Hours: Intake & Output 11/23/17 11/23/17 11/23/17 06:59 14:59 22:59 Intake Total 50 100 1298 Output Total 1500 2625 Balance -1450 100 -1327 Lab Results Last 24 Hours: Laboratory Results - last 24 hr 11/23/17 11/23/17 Range/Units 04:49 04:49 WBC 15.05 H (4.0-11.0) K/uL RBC 4.84 (4.50-5.90) M/uL Hgb 15.2 (13.0-17.0) g/dL Hct 44.0 (38.0-50.0) % MCV 90.9 (80.0-98.0) fL MCH 31.4 (27.0-32.0) pg MCHC 34.5 (31.0-37.0) g/dL RDW Std Deviation 45.9 (28.0-62.0) fl RDW Coeff of Royal 14 (11.0-15.0) % Plt Count 260 (150-400) K/uL MPV 10.00 (7.40-12.00) fL Neut % (Auto) 68.8 (48.0-80.0) % Lymph % (Auto) 19.6 (16.0-40.0) % [place] % (Auto) 11.0 (0.0-15.0) % Eos % (Auto) 0.5 (0.0-7.0) % Baso % (Auto) 0.1 (0.0-1.5) % Neut # (Auto) 10.4 H (1.4-5.7) K/uL Lymph # (Auto) 3.0 H (0.6-2.4) K/uL [place] # (Auto) 1.7 H (0.0-0.8) K/uL Eos # (Auto) 0.1 (0.0-0.7) K/uL Baso # (Auto) 0.0 (0.0-0.1) K/uL Nucleated RBC % 0.0 /100WBC Nucleated RBCs # 0 K/uL Sodium 141 (136-148) mmol/L Potassium 3.6 (3.5-5.1) mmol/L Chloride 105 (98-107) mmol/L Carbon Dioxide 25.9 (21.0-32.0) mmol/L BUN 7 (7.0-18.0) mg/dL Creatinine 0.8 (0.8-1.3) mg/dL Est Cr Clr Drug Dosing 146.17 mL/min Estimated GFR (MDRD) > 60.0 ml/min Glucose 109 H (74-106) mg/dL Calcium 8.5 (8.5-10.1) mg/dL Total Bilirubin 1.1 H (0.2-1.0) mg/dL AST 23 (15-37) IU/L ALT 44 (14-63) IU/L Alkaline Phosphatase 39 L (46-116) U/L Total Protein 6.6 (6.4-8.2) g/dL Albumin 3.4 (3.4-5.0) g/dL Globulin 3.2 (2.0-3.5) g/dL Albumin/Globulin Ratio 1.1 L (1.3-2.8) Med Orders - Current: Current Medications Hydromorphone HCl (Dilaudid) 1 mg IVPUSH Q3H PRN PRN Reason: Pain Piperacillin Sod/Tazobactam (Sod 3.375 gm/ Sodium Chloride) 50 mls @ 100 mls/ hr IV Q6H [facility] Last Admin: 11/23/17 15:06 Dose: 100 mls/hr Sodium Chloride (Normal Saline) 1,000 mls @ 125 mls/hr IV ASDIRECTED [facility] Last Admin: 11/23/17 07:45 Dose: 125 mls/hr Ketorolac Tromethamine (Toradol) 15 mg IVPUSH Q6H PRN PRN Reason: Pain Stop: 11/27/17 15:21 Last Admin: 11/23/17 03:14 Dose: 15 mg Nitroglycerin (Nitrostat) 0.4 mg SL Q5M PRN PRN Reason: Chest Pain Last Admin: 11/22/17 12:24 Dose: 0.4 mg Pantoprazole Sodium (Protonix Iv) 40 mg IVPUSH DAILY [facility] Last Admin: 11/23/17 10:30 Dose: 40 mg Temazepam (Restoril) 15 mg PO BEDTIME PRN PRN Reason: Sleep Discontinued Medications Aspirin (Aspirin) 324 mg PO ONETIME ONE Stop: 11/22/17 11:47 Last Admin: 11/22/17 12:01 Dose: 324 mg Al Hydroxide/Mg Hydroxide 15 (ml/ Lidocaine HCl 5 ml) 0 ml PO ONETIME ONE Stop: 11/22/17 14:38 Last Admin: 11/22/17 15:31 Dose: Not Given Al Hydroxide/Mg Hydroxide 15 (ml/ Lidocaine HCl 5 ml) 0 ml PO ONETIME ONE Stop: 11/22/17 15:16 Last Admin: 11/22/17 15:27 Dose: 1 each Enoxaparin Sodium (Lovenox) 40 mg SUBCUT Q24H [facility] Last Admin: 11/22/17 15:29 Dose: Not Given Gadobenate Dimeglumine (Multihance) 20 ml IVPUSH ONETIME STA Stop: 11/23/17 13:21 Last Admin: 11/23/17 13:30 Dose: 20 ml Sodium Chloride (Normal Saline) 1,000 mls @ 999 mls/hr IV STAT ONE Stop: 11/22/17 12:46 Last Admin: 11/22/17 12:02 Dose: 999 mls/hr Sodium Chloride (Normal Saline) 1,000 mls @ 125 mls/hr IV STAT [facility] Last Admin: 11/22/17 14:08 Dose: 125 mls/hr Iopamidol (Isovue Multipack-370 (76%)) 100 ml IVPUSH ONETIME STA Stop: 11/22/17 13:08 Last Admin: 11/22/17 13:08 Dose: 100 ml Ketorolac Tromethamine (Toradol) 30 mg IVPUSH ONETIME ONE Stop: 11/22/17 13:52 Last Admin: 11/22/17 14:08 Dose: 30 mg Morphine Sulfate (Morphine) 2 mg IVPUSH ONETIME ONE Stop: 11/22/17 11:47 Last Admin: 11/22/17 13:06 Dose: Not Given Pantoprazole Sodium (Protonix Iv) 80 mg IVPUSH .BOLUS ONE Stop: 11/22/17 11:47 Last Admin: 11/22/17 12:02 Dose: 80 mg - Exam General: Alert, Oriented Lungs: Clear to Auscultation, Normal Respiratory Effort Cardiovascular: Regular Rate, Regular Rhythm GI/Abdominal Exam: Soft, Non-Tender, No Distention, No Mass Extremities: Normal Inspection - Problem List & Annotations (1) Epigastric pain SNOMED Code(s): 81381751 Code(s): R10.13 - EPIGASTRIC PAIN Status: Acute Current Visit: Yes - Problem List Review Problem List Initiated/Reviewed/Updated: Yes - My Orders Last 24 Hours: Bilirubin 1.1 on CMP this morning. White blood cell count is 15,000. MRCP revealed acute cholecystitis with no evidence of choledocholithiasis. - Plan Plan:: Acute cholecystitis:The patient and I discussed the pathophysiology of biliary disease. For acute cholecystitis presented within 72 hours of the onset of symptoms, treatment is removal of the gallbladder. The patient and I discussed the laparoscopic and open approach to cholecystectomy. Should I be unable to remove the gallbladder safely via the laparoscopic approach I will convert to open. We discussed the expected perioperative course as well as the risks including bleeding infection or damage to surrounding structures. Patient verbalized understanding and wishes to proceed. I will do this tomorrow
[2017-11-24] MEDS: Sodium Chloride 0.9% 1,000 ML IV SCH ×3 (01:18→19:58)
[2017-11-24] MEDS: Piperacillin/Tazobactam 3.375 GM in Sodium Chloride 0.9% 50 ML IV SCH ×4 (02:28→22:09)
[2017-11-24 06:05] LABS: CHLORIDE,CL 106 mmol/L (98-107); SODIUM,NA 139 mmol/L (136-148)
--- NOTE | 2017-11-24 08:02 | PCM.PN ---
- General Info Date of Service: 11/24/17 Admission Dx/Problem (Free Text): Admission Diagnosis/Problem Admission Diagnosis/Problem Cholelithiasis Subjective Update: Feeling ok this morning, some intermittent sharp pain to RUQ, no nausea or vomiting. passing flatus. No chest pain or SOB. Functional Status: Reports: Pain Controlled, Ambulating, Urinating - Review of Systems General: Reports: No Symptoms. Denies: Fever, Weakness, Fatigue HEENT: Reports: No Symptoms Pulmonary: Reports: No Symptoms. Denies: Shortness of Breath Cardiovascular: Reports: No Symptoms. Denies: Chest Pain Gastrointestinal: Reports: Abdominal Pain (RUQ intermittently ), Constipation. Denies: Nausea, Vomiting Genitourinary: Reports: No Symptoms. Denies: Dysuria, Frequency Musculoskeletal: Reports: No Symptoms Neurological: Reports: No Symptoms Psychiatric: Reports: No Symptoms - Patient Data Vitals - Most Recent: Last Vital Signs Temp 99.2 F 11/24/17 04:00 Pulse 68 11/24/17 04:00 Resp 19 11/24/17 04:00 BP 119/62 11/24/17 04:00 Pulse Ox 94 L 11/24/17 04:00 Weight - Most Recent: 122.8 kg I&O - Last 24 Hours: Intake & Output 11/23/17 11/24/17 11/24/17 22:59 06:59 14:59 Intake Total 1298 1565 Output Total 2625 1100 Balance -1327 465 Lab Results Last 24 Hours: Laboratory Results - last 24 hr 11/24/17 11/24/17 Range/Units 04:53 04:53 WBC 14.57 H (4.0-11.0) K/uL RBC 4.67 (4.50-5.90) M/uL Hgb 14.6 (13.0-17.0) g/dL Hct 42.9 (38.0-50.0) % MCV 91.9 (80.0-98.0) fL MCH 31.3 (27.0-32.0) pg MCHC 34.0 (31.0-37.0) g/dL RDW Std Deviation 46.2 (28.0-62.0) fl RDW Coeff of Royal 14 (11.0-15.0) % Plt Count 242 (150-400) K/uL MPV 10.10 (7.40-12.00) fL Neut % (Auto) 67.7 (48.0-80.0) % Lymph % (Auto) 18.3 (16.0-40.0) % [place] % (Auto) 10.8 (0.0-15.0) % Eos % (Auto) 2.9 (0.0-7.0) % Baso % (Auto) 0.3 (0.0-1.5) % Neut # (Auto) 9.9 H (1.4-5.7) K/uL Lymph # (Auto) 2.7 H (0.6-2.4) K/uL [place] # (Auto) 1.6 H (0.0-0.8) K/uL Eos # (Auto) 0.4 (0.0-0.7) K/uL Baso # (Auto) 0.0 (0.0-0.1) K/uL Nucleated RBC % 0.0 /100WBC Nucleated RBCs # 0 K/uL Sodium 139 (136-148) mmol/L Potassium 3.5 (3.5-5.1) mmol/L Chloride 106 (98-107) mmol/L Carbon Dioxide 25.6 (21.0-32.0) mmol/L BUN 11 (7.0-18.0) mg/dL Creatinine 0.8 (0.8-1.3) mg/dL Est Cr Clr Drug Dosing 146.17 mL/min Estimated GFR (MDRD) > 60.0 ml/min Glucose 88 (74-106) mg/dL Calcium 8.4 L (8.5-10.1) mg/dL Total Bilirubin 1.2 H (0.2-1.0) mg/dL AST 25 (15-37) IU/L ALT 40 (14-63) IU/L Alkaline Phosphatase 42 L (46-116) U/L Total Protein 6.5 (6.4-8.2) g/dL Albumin 3.2 L (3.4-5.0) g/dL Globulin 3.3 (2.0-3.5) g/dL Albumin/Globulin Ratio 1.0 L (1.3-2.8) Med Orders - Current: Current Medications Hydromorphone HCl (Dilaudid) 1 mg IVPUSH Q3H PRN PRN Reason: Pain Piperacillin Sod/Tazobactam (Sod 3.375 gm/ Sodium Chloride) 50 mls @ 100 mls/ hr IV Q6H [facility] Last Admin: 11/24/17 02:28 Dose: 100 mls/hr Sodium Chloride (Normal Saline) 1,000 mls @ 125 mls/hr IV ASDIRECTED [facility] Last Admin: 11/24/17 01:18 Dose: 125 mls/hr Ketorolac Tromethamine (Toradol) 15 mg IVPUSH Q6H PRN PRN Reason: Pain Stop: 11/27/17 15:21 Last Admin: 11/23/17 20:27 Dose: 15 mg Nitroglycerin (Nitrostat) 0.4 mg SL Q5M PRN PRN Reason: Chest Pain Last Admin: 11/22/17 12:24 Dose: 0.4 mg Pantoprazole Sodium (Protonix Iv) 40 mg IVPUSH DAILY [facility] Last Admin: 11/23/17 10:30 Dose: 40 mg Temazepam (Restoril) 15 mg PO BEDTIME PRN PRN Reason: Sleep Last Admin: 11/24/17 00:18 Dose: 15 mg Discontinued Medications Aspirin (Aspirin) 324 mg PO ONETIME ONE Stop: 11/22/17 11:47 Last Admin: 11/22/17 12:01 Dose: 324 mg Al Hydroxide/Mg Hydroxide 15 (ml/ Lidocaine HCl 5 ml) 0 ml PO ONETIME ONE Stop: 11/22/17 14:38 Last Admin: 11/22/17 15:31 Dose: Not Given Al Hydroxide/Mg Hydroxide 15 (ml/ Lidocaine HCl 5 ml) 0 ml PO ONETIME ONE Stop: 11/22/17 15:16 Last Admin: 11/22/17 15:27 Dose: 1 each Enoxaparin Sodium (Lovenox) 40 mg SUBCUT Q24H [facility] Last Admin: 11/22/17 15:29 Dose: Not Given Gadobenate Dimeglumine (Multihance) 20 ml IVPUSH ONETIME STA Stop: 11/23/17 13:21 Last Admin: 11/23/17 13:30 Dose: 20 ml Sodium Chloride (Normal Saline) 1,000 mls @ 999 mls/hr IV STAT ONE Stop: 11/22/17 12:46 Last Admin: 11/22/17 12:02 Dose: 999 mls/hr Sodium Chloride (Normal Saline) 1,000 mls @ 125 mls/hr IV STAT [facility] Last Admin: 11/22/17 14:08 Dose: 125 mls/hr Iopamidol (Isovue Multipack-370 (76%)) 100 ml IVPUSH ONETIME STA Stop: 11/22/17 13:08 Last Admin: 11/22/17 13:08 Dose: 100 ml Ketorolac Tromethamine (Toradol) 30 mg IVPUSH ONETIME ONE Stop: 11/22/17 13:52 Last Admin: 11/22/17 14:08 Dose: 30 mg Morphine Sulfate (Morphine) 2 mg IVPUSH ONETIME ONE Stop: 11/22/17 11:47 Last Admin: 11/22/17 13:06 Dose: Not Given Pantoprazole Sodium (Protonix Iv) 80 mg IVPUSH .BOLUS ONE Stop: 11/22/17 11:47 Last Admin: 11/22/17 12:02 Dose: 80 mg - Exam General: Alert, Oriented, Cooperative Neck: Supple Lungs: Clear to Auscultation, Normal Respiratory Effort Cardiovascular: Regular Rate, Regular Rhythm GI/Abdominal Exam: Normal Bowel Sounds, Soft, No Organomegaly, No Distention, No Abnormal Bruit, No Mass, Pelvis Stable, Tender (RUQ) Back Exam: Normal Inspection, Full Range of Motion Extremities: Normal Inspection, Normal Range of Motion, Non-Tender, No Pedal Edema, Normal Capillary Refill Neurological: No New Focal Deficit Psy/Mental Status: Alert, Normal Affect, Normal Mood - Problem List & Annotations (1) Acute cholecystitis SNOMED Code(s): 99321625 Code(s): K81.0 - ACUTE CHOLECYSTITIS Status: Acute Current Visit: Yes (2) Epigastric pain SNOMED Code(s): 03649519 Code(s): R10.13 - EPIGASTRIC PAIN Status: Acute Current Visit: Yes (3) Cholelithiasis SNOMED Code(s): 566177380 Code(s): K80.20 - CALCULUS OF GALLBLADDER W/O CHOLECYSTITIS W/O OBSTRUCTION Status: Acute Current Visit: Yes Qualifiers: Cholelithiasis location: gallbladder Cholecystitis presence: without cholecystitis Biliary obstruction: without biliary obstruction Qualified Code(s): K80.20 - Calculus of gallbladder without cholecystitis without obstruction (4) Nausea & vomiting SNOMED Code(s): 69552655 Code(s): R11.2 - NAUSEA WITH VOMITING, UNSPECIFIED Status: Acute Current Visit: Yes Qualifiers: Vomiting type: unspecified Vomiting Intractability: non-intractable Qualified Code(s): R11.2 - Nausea with vomiting, unspecified - Problem List Review Problem List Initiated/Reviewed/Updated: Yes - My Orders Last 24 Hours: My Active Orders 11/23/17 08:01 Antiembolic Devices [RC] PER UNIT ROUTINE SCD [Sequential Compression Device] [OM.PC] Routine 11/23/17 08:04 Taxation Agent Discontinue [Cardiac Monitoring Discontinue] [RC] Click to Edit 11/23/17 09:00 Pantoprazole [ProTONIX IV] 40 mg IVPUSH DAILY 11/23/17 09:11 Abdomen w wo Cont [MR] Routine 11/23/17 15:54 Temazepam [Restoril] 15 mg PO BEDTIME PRN - Plan Plan:: This 42 year old male admitted with epigastric/RUQ pain and cholelithiasis 1. RUQ/epigastric pain: Acute cholecystitis noted on MRCP, to OR today with Dr Mendes. Bilirubin 1.2 today. Leukocytosis 14,000 today, slow improvement. afebrile. Continue IVFs, bowel rest and Zosyn. Dilaudid and Toradol for pain. Protonix Daily. VTE prophylaxis: SCDs and ambulation. Dispo: Pending surgical intervention 1-2 days.
--- NOTE | 2017-11-24 08:59 | PCM.PREANE ---
Preanesthetic Assessment - Anesthesia/Transfusion/Family Hx Anesthesia History: No Prior Anesthesia Family History of Anesthesia Reaction: No Transfusion History: No Prior Transfusion(s) - Review of Systems General: No Symptoms Pulmonary: No Symptoms Cardiovascular: No Symptoms Gastrointestinal: No Symptoms Neurological: No Symptoms Other: Reports: None - Physical Assessment NPO Status Date: 11/23/17 NPO Status Time: 22:00 O2 Sat by Pulse Oximetry: 95 Respiratory Rate: 16 Blood Pressure: 136/78 Vital Signs: Last Vital Signs Temp 99.2 F 11/24/17 08:00 Pulse 68 11/24/17 04:00 Resp 16 11/24/17 08:00 BP 139/79 11/24/17 08:00 Pulse Ox 95 11/24/17 08:00 Height: 6 ft 4 in Weight: 122.8 kg ASA Class: 2 Mental Status: Alert & Oriented x3 Airway Class: Mallampati = 2 Dentition: Reports: Normal Dentition Thyro-Mental Finger Breadths: 3 Mouth Opening Finger Breadths: 3 ROM/Head Extension: Full Lungs: Clear to Auscultation, Normal Respiratory Effort Cardiovascular: Regular Rate, Regular Rhythm - Lab Values: Laboratory Last Values WBC 14.57 K/uL (4.0-11.0) H 11/24/17 04:53 RBC 4.67 M/uL (4.50-5.90) 11/24/17 04:53 Hgb 14.6 g/dL (13.0-17.0) 11/24/17 04:53 Hct 42.9 % (38.0-50.0) 11/24/17 04:53 MCV 91.9 fL (80.0-98.0) 11/24/17 04:53 MCH 31.3 pg (27.0-32.0) 11/24/17 04:53 MCHC 34.0 g/dL (31.0-37.0) 11/24/17 04:53 RDW Std Deviation 46.2 fl (28.0-62.0) 11/24/17 04:53 RDW Coeff of Royal 14 % (11.0-15.0) 11/24/17 04:53 Plt Count 242 K/uL (150-400) 11/24/17 04:53 MPV 10.10 fL (7.40-12.00) 11/24/17 04:53 Neut % (Auto) 67.7 % (48.0-80.0) 11/24/17 04:53 Lymph % (Auto) 18.3 % (16.0-40.0) 11/24/17 04:53 [place] % (Auto) 10.8 % (0.0-15.0) 11/24/17 04:53 Eos % (Auto) 2.9 % (0.0-7.0) 11/24/17 04:53 Baso % (Auto) 0.3 % (0.0-1.5) 11/24/17 04:53 Neut # (Auto) 9.9 K/uL (1.4-5.7) H 11/24/17 04:53 Lymph # (Auto) 2.7 K/uL (0.6-2.4) H 11/24/17 04:53 [place]ilion # (Auto) 1.6 K/uL (0.0-0.8) H 11/24/17 04:53 Eos # (Auto) 0.4 K/uL (0.0-0.7) 11/24/17 04:53 Baso # (Auto) 0.0 K/uL (0.0-0.1) 11/24/17 04:53 Nucleated RBC % 0.0 /100WBC 11/24/17 04:53 Nucleated RBCs # 0 K/uL 11/24/17 04:53 Sodium 139 mmol/L (136-148) 11/24/17 04:53 Potassium 3.5 mmol/L (3.5-5.1) 11/24/17 04:53 Chloride 106 mmol/L (98-107) 11/24/17 04:53 Carbon Dioxide 25.6 mmol/L (21.0-32.0) 11/24/17 04:53 BUN 11 mg/dL (7.0-18.0) 11/24/17 04:53 Creatinine 0.8 mg/dL (0.8-1.3) 11/24/17 04:53 Est Cr Clr Drug Dosing 146.17 mL/min 11/24/17 04:53 Estimated GFR (MDRD) > 60.0 ml/min 11/24/17 04:53 Glucose 88 mg/dL (74-106) 11/24/17 04:53 Calcium 8.4 mg/dL (8.5-10.1) L 11/24/17 04:53 Total Bilirubin 1.2 mg/dL (0.2-1.0) H 11/24/17 04:53 AST 25 IU/L (15-37) 11/24/17 04:53 ALT 40 IU/L (14-63) 11/24/17 04:53 Alkaline Phosphatase 42 U/L (46-116) L 11/24/17 04:53 Troponin I < 0.050 ng/mL (0.000-0.056) 11/22/17 11:59 Total Protein 6.5 g/dL (6.4-8.2) 11/24/17 04:53 Albumin 3.2 g/dL (3.4-5.0) L 11/24/17 04:53 Globulin 3.3 g/dL (2.0-3.5) 11/24/17 04:53 Albumin/Globulin Ratio 1.0 (1.3-2.8) L 11/24/17 04:53 Lipase 110 U/L (73-393) 11/22/17 11:59 Urine Color ORANGE 11/22/17 13:19 Urine Appearance CLEAR 11/22/17 13:19 Urine pH 8.0 (5.0-8.0) 11/22/17 13:19 Ur Specific [place] 1.010 (1.001-1.035) 11/22/17 13:19 Urine Protein NEGATIVE mg/dL (NEGATIVE) 11/22/17 13:19 Urine Glucose (UA) NEGATIVE mg/dL (NEGATIVE) 11/22/17 13:19 Urine Ketones 15 mg/dL (NEGATIVE) H 11/22/17 13:19 Urine Occult Blood NEGATIVE (NEGATIVE) 11/22/17 13:19 Urine Nitrite NEGATIVE (NEGATIVE) 11/22/17 13:19 Urine Bilirubin NEGATIVE (NEGATIVE) 11/22/17 13:19 Urine Urobilinogen 0.2 EU/dL (<2.0) 11/22/17 13:19 Ur Leukocyte Esterase NEGATIVE (NEGATIVE) 11/22/17 13:19 Urine RBC 0-1 (0-2/HPF) 11/22/17 13:19 Urine WBC 0-1 (0-5/HPF) 11/22/17 13:19 Ur Epithelial Cells RARE (NONE-FEW) 11/22/17 13:19 Urine Bacteria RARE (NEGATIVE) 11/22/17 13:19 H. pylori IgG Antibody NEGATIVE (NEG) 11/22/17 11:59 - Allergies Allergies/Adverse Reactions: Allergies Allergy/AdvReac Type Severity Reaction Status Date / Time No Known Allergies Allergy Verified 11/22/17 12:09 - Acknowledgements Anesthesia Type Planned: General Anesthesia Pt an Appropriate Candidate for the Planned Anesthesia: Yes Alternatives and Risks of Anesthesia Discussed w Pt/Guardian: Yes Pt/Guardian Understands and Agrees with Anesthesia Plan: Yes PreAnesthesia Questionnaire - Past Health History Medical/Surgical History: Denies Medical/Surgical History HEENT History: Reports: None Cardiovascular History: Reports: Other (See Below) (Pt states he has fluttering heart feeling a couple of times a year). Denies: CAD, High Cholesterol, Hypertension Respiratory History: Reports: None. Denies: Asthma, COPD Gastrointestinal History: Reports: GERD. Denies: Bowel Obstruction, GI Bleed Genitourinary History: Reports: None. Denies: Acute Renal Failure, Chronic Renal Insuffiency Musculoskeletal History: Reports: None Other Musculoskeletal History: Left shoulder fx Neurological History: Reports: None Psychiatric History: Reports: None Endocrine/Metabolic History: Reports: Obesity/BMI 30+. Denies: Diabetes, Type II, Hypothyroidism Hematologic History: Reports: None Immunologic History: Reports: None Oncologic (Cancer) History: Reports: None Dermatologic History: Reports: None - Infectious Disease History Infectious Disease History: Reports: None - Past Surgical History GI Surgical History: Reports: None Dermatological Surgical History: Reports: Skin Biopsy - SUBSTANCE USE Smoking Status *Q: Current Every Day Smoker Tobacco Use Within Last Twelve Months: Smokeless Tobacco (<1 tin daily) Second Hand Smoke Exposure: No Days Per Week of Alcohol Use: 5 Number of Drinks Per Day: 6 Total Drinks Per Week: 30 Date of Last Drink: 11/19/17 Time of Last Drink: 19:00 Recreational Drug Use History: No - HOME MEDS Home Medications: Home Meds . [No Known Home Meds] 11/22/17 [History] - CURRENT (IN HOUSE) MEDS Current Meds: Current Medications Hydromorphone HCl (Dilaudid) 1 mg IVPUSH Q3H PRN PRN Reason: Pain Piperacillin Sod/Tazobactam (Sod 3.375 gm/ Sodium Chloride) 50 mls @ 100 mls/ hr IV Q6H [facility] Last Admin: 11/24/17 02:28 Dose: 100 mls/hr Sodium Chloride (Normal Saline) 1,000 mls @ 125 mls/hr IV ASDIRECTED [facility] Last Admin: 11/24/17 01:18 Dose: 125 mls/hr Ketorolac Tromethamine (Toradol) 15 mg IVPUSH Q6H PRN PRN Reason: Pain Stop: 11/27/17 15:21 Last Admin: 11/23/17 20:27 Dose: 15 mg Nitroglycerin (Nitrostat) 0.4 mg SL Q5M PRN PRN Reason: Chest Pain Last Admin: 11/22/17 12:24 Dose: 0.4 mg Pantoprazole Sodium (Protonix Iv) 40 mg IVPUSH DAILY [facility] Last Admin: 11/23/17 10:30 Dose: 40 mg Temazepam (Restoril) 15 mg PO BEDTIME PRN PRN Reason: Sleep Last Admin: 11/24/17 00:18 Dose: 15 mg Discontinued Medications Aspirin (Aspirin) 324 mg PO ONETIME ONE Stop: 11/22/17 11:47 Last Admin: 11/22/17 12:01 Dose: 324 mg Al Hydroxide/Mg Hydroxide 15 (ml/ Lidocaine HCl 5 ml) 0 ml PO ONETIME ONE Stop: 11/22/17 14:38 Last Admin: 11/22/17 15:31 Dose: Not Given Al Hydroxide/Mg Hydroxide 15 (ml/ Lidocaine HCl 5 ml) 0 ml PO ONETIME ONE Stop: 11/22/17 15:16 Last Admin: 11/22/17 15:27 Dose: 1 each Enoxaparin Sodium (Lovenox) 40 mg SUBCUT Q24H [facility] Last Admin: 11/22/17 15:29 Dose: Not Given Gadobenate Dimeglumine (Multihance) 20 ml IVPUSH ONETIME STA Stop: 11/23/17 13:21 Last Admin: 11/23/17 13:30 Dose: 20 ml Sodium Chloride (Normal Saline) 1,000 mls @ 999 mls/hr IV STAT ONE Stop: 11/22/17 12:46 Last Admin: 11/22/17 12:02 Dose: 999 mls/hr Sodium Chloride (Normal Saline) 1,000 mls @ 125 mls/hr IV STAT [facility] Last Admin: 11/22/17 14:08 Dose: 125 mls/hr Iopamidol (Isovue Multipack-370 (76%)) 100 ml IVPUSH ONETIME STA Stop: 11/22/17 13:08 Last Admin: 11/22/17 13:08 Dose: 100 ml Ketorolac Tromethamine (Toradol) 30 mg IVPUSH ONETIME ONE Stop: 11/22/17 13:52 Last Admin: 11/22/17 14:08 Dose: 30 mg Morphine Sulfate (Morphine) 2 mg IVPUSH ONETIME ONE Stop: 11/22/17 11:47 Last Admin: 11/22/17 13:06 Dose: Not Given Pantoprazole Sodium (Protonix Iv) 80 mg IVPUSH .BOLUS ONE Stop: 11/22/17 11:47 Last Admin: 11/22/17 12:02 Dose: 80 mg
[2017-11-24] MEDS: Pantoprazole 40 MG Vial IVPUSH SCH (09:47)
--- NOTE | 2017-11-24 10:23 | MR ---
EXAM DATE: 11/22/17 PATIENT'S AGE: 42 Patient: ROGER SQUIRES Facility: [place], [place] Site . Site : 1975 Study: MRI Abdomen W/ and W/O Cont [id number] 2:10:59 PM Ordering Physician: Jaylon David Final Report: INDICATION: gallstones, elevated bilirubin. MRCP protocol requested HISTORY: Gallstones. Elevated bilirubin. COMPARISON: Ultrasound of the abdomen limited 11/22/2017. CT of the abdomen and pelvis 11/22. TECHNIQUE: Three plane localizer, coronal T2 weighted with fat suppression, axial T2 weighted with fat suppression, axial T1 weighted in and out of phase, axial diffusion-weighted imaging with ADC map, high-resolution, heavily T2 weighted 2D /3D MRCP images, axial SSFP, and postcontrast axial coronal T1 weighted fat- suppressed imaging. 20 cc of IV MultiHance. FINDINGS: The gallbladder is distended, with pericholecystic fluid. Multiple gallstones are present. Cholecystitis is suspected. The common bile duct is well visualized on series 301, image 19. It is normal in caliber, measuring 3-4 mm. There is no choledocholithiasis or obstructing mass. There is no loss of signal intensity in the liver on opposed phase imaging to indicate hepatic steatosis. No pleural or pericardial effusion. No hydronephrosis. Spleen size is normal. There are inflammatory changes with hyper enhancement about the gallbladder fossa after gadolinium. This is seen best on series 1801, image 21. No hydronephrosis. Symmetric nephrograms. No pleural or pericardial effusion. No abdominal lymphadenopathy. No suspicious foci of restricted diffusion. IMPRESSION: 1. Acute cholecystitis, with wall thickening/mural enhancement. 2. Normal caliber biliary tree. No choledocholithiasis or obstructing mass. 3. Report called to nurse practitioner Chris, referring clinical service, , 1428 hours. Dictated by Garrett Kenyon MD @ 11/23/2017 2:30:07 PM Dictated by: Garrett Kenyon MD @ 11/23/2017 14:30:16 (Electronic Signature) Report Signed by Proxy. [facility] HOSPITALNorbert
[2017-11-24] MEDS ORDERED: Midazolam 1 MG/ML 2 ML SDV ONE ×2 (14:13→14:30)
[2017-11-24] MEDS ORDERED: Ondansetron 4 MG/2 ML SDV ONE (14:30)
[2017-11-24] MEDS ORDERED: Rocuronium 10 MG/ML 10 ML Syringe ONE (14:30)
[2017-11-24] MEDS ORDERED: fentaNYL 250 MCG/5 ML SDV ONE (14:30)
[2017-11-24] MEDS ORDERED: Propofol 200 MG/20 ML SDV ONE (14:30)
[2017-11-24] MEDS ORDERED: Succinylcholine 200 MG/10 ML MDV ONE (14:30)
[2017-11-24] MEDS ORDERED: Bupivacaine 0.5% 30 ML SDV ONE ×3 (14:47→16:20)
[2017-11-24] MEDS ORDERED: fentaNYL 100 MCG/2 ML SDV ONE ×2 (15:22→16:41)
[2017-11-24] MEDS ORDERED: Labetalol 100 MG/20 ML MDV ONE (15:46)
[2017-11-24] MEDS ORDERED: Glycopyrrolate 0.2 MG/ML SDV ONE ×2 (16:07→17:07)
[2017-11-24] MEDS ORDERED: Neostigmine Methylsulfate 1 MG/ML 5 ML Syringe ONE (17:07)
[2017-11-24] MEDS ORDERED: HYDROmorphone 2 MG/ML SDV ONE (17:12)
--- NOTE | 2017-11-24 17:52 | PCM.SN ---
- Free Text/Narrative Note: Spoke with Dr Mendes post-operatively. She will take over full care. Hospitalist team will sign off for now. Appreciate your assistance with this case. Please re-consult if needed. Dr Iyer aware.
[2017-11-24] MEDS ORDERED: fentaNYL 100 MCG/2 ML SDV IVPUSH PRN (17:53)
--- NOTE | 2017-11-24 17:57 | PCM.OPNOTE ---
- General Post-Op/Procedure Note Date of Surgery/Procedure: 11/24/17 Operative Procedure(s): laparoscopic converted to open cholecystectomy Findings: severe, hemorrhagic, acute cholecystitis. Multiple large gallstones Pre Op Diagnosis: acute cholecystitis Post-Op Diagnosis: severe, hemorrhagic, acute cholecystitis Anesthesia Technique: General ET Tube Primary Surgeon: Manda Mendes Secondary Surgeon: Neto Hi Tray Drier Operator: Jose Antonio Grullon Fluid Replacement, Intraop: 1,000 Output, Urine Amount: 75 EBL in mLs: 600 Surgical Drain/Tube Type: Umang Drain Complications: None Condition: Stable Free Text/Narrative:: Intake & Output 11/24/17 11/24/17 11/24/17 06:59 14:59 22:59 Intake Total 1565 1375 Output Total 1100 300 Balance 465 1075
[2017-11-24] MEDS ORDERED: Diazepam 5 MG/ML 10 ML Vial MDV IV PRN (18:01)
[2017-11-24] MEDS ORDERED: Sodium Chloride 0.9% 1,000 ML IV SCH (18:15)
[2017-11-24] MEDS: HYDROmorphone/Normal Saline 6 MG/30 ML PCA Vial IV PRN (19:36)
--- NOTE | 2017-11-24 19:59 | OR ---
SURGEON: ELIAS HARPER MD DATE OF PROCEDURE: 11/24/2017 PREOPERATIVE DIAGNOSIS: Acute cholecystitis. POSTOPERATIVE DIAGNOSIS: Severe acute hemorrhagic cholecystitis. PROCEDURE PERFORMED: Laparoscopic converted to open cholecystectomy. BIOLOGY RESEARCH ASSISTANT: Neto Hi M.D. RESIDENT: Dr. Jose Antonio Grullon. ANESTHESIA: General endotracheal anesthesia. EBL: 600 mL. URINE OUTPUT: 70 mL. FLUIDS: 2500 mL of crystalloid. FINDINGS: A 15 cm gallbladder containing large stones, one of which was impacted at the cystic duct. Due to the gallbladder being grossly inflamed and dilated, unable to complete laparoscopically and convert it to open. COMPLICATIONS: None. INDICATIONS: The patient is a 42-year-old male, who presents with nausea, vomiting, and epigastric pain. A CT of the abdomen and pelvis showed cholelithiasis with no evidence of acute cholecystitis. The patient had a white blood cell count of 15,000 and was admitted to the Medicine Service. A followup right upper quadrant ultrasound showed a thickened gallbladder wall and cholelithiasis. The next day, the patient's bilirubin increased to 1.1. An MRCP was performed that showed acute cholecystitis. We decided to proceed with a laparoscopic possible open cholecystectomy. I discussed the procedure, expected perioperative course as well as the possibility of converting from laparoscopic to open if I was unable to complete it safely and laparoscopically. We discussed the risks including bleeding, infection, or damage to surrounding structures. The patient verbalized understanding and wishes to proceed. PROCEDURE IN DETAIL: The patient was brought into the OR and placed on the OR table in supine position. A time-out was completed verifying the patient's name, age, date of , allergies, and procedure to be performed. General endotracheal anesthesia was induced. A Sheikh catheter was placed and the left arm was tucked at the patient's side. The abdomen was prepped and draped in usual standard fashion. I anesthetized the supraumbilical midline with 0.5% Marcaine plain. An 11 blade was used to make a supraumbilical midline incision approximately 3 cm in size. Cautery was used to dissect the subcutaneous fat. Retractors were used to dissect down to the level of fascia. The fascia was elevated with Eduardo's and incised sharply with the Adams scissors. Entry in the abdomen was palpated. 0 Vicryl stay sutures were placed on either side of the fascia, and a 12 mm Celeste trocar inserted in the abdomen. The abdomen was insufflated to a pressure of 13 mmHg. A 5 mm 30-degree scope was inserted in the abdomen and I inspected the area underneath my initial trocar site. There did not appear to be any damage to surrounding structures. The patient was placed in reverse Trendelenburg position and airplaned slightly to the left. 5 mm trocars were then placed under direct visualization in the following locations, one in the epigastric area, one in the right flank, and one along the right subcostal margin along the midclavicular line. I attempted to grasp the dome of the gallbladder; however, it was tense and inflamed. An aspirating needle was placed into the dome of the gallbladder and approximately 100 mL of green appearing bile were aspirated from the gallbladder. This allowed me to grasp the dome of the gallbladder with an atraumatic grasper through the right lateral port and elevate the gallbladder above the liver. The gallbladder was grossly distended and markedly inflamed. I attempted to grasp the infundibulum, but only tore into the wall of the gallbladder. The patient had an extremely large stone impacted along the cystic duct which made it impossible for me to visualize my anatomy in order to safely dissect along the infundibulum. The decision was made to go open. My partner, Dr. Neto Hi was brought into the case. The 5 mm trocars were removed and a right subcostal incision was made 2 fingerbreadths below the subcostal margin connecting the epigastric and subcostal port site. Cautery was used to dissect down through the subcutaneous fat, anterior abdominal wall fascia, the rectus muscles, external oblique, and entered the peritoneum. Once this was done with wet laps, retractors were placed to expose the gallbladder. I was unable to adequately visualize the cystic duct proximally, so I approached the gallbladder in a dome down fashion. Sharp as well as blunt dissection were used to take the gallbladder down in a dome down fashion. This was extremely difficult, given that the gallbladder was extremely distended and full of large stones. Eventually, we were able to mobilize the gallbladder enough to identify the cystic artery and duct. These were doubly clipped and ligated. The gallbladder was passed off the field. It was measured and found to be 13 cm in size. The abdomen was irrigated with normal saline until it ran clear. Endo Avitene and Surgicel were placed in the gallbladder fossa and pressure held. The operative field was then reinspected and there was no evidence of bile leakage and it appeared hemostatic. The clips appeared to be in good position. A 19- Arabic Umang drain was then placed in the gallbladder fossa through the right lateral flank port site. This was then secured to the skin with a 2-0 silk suture. The peritoneum was closed with running 0 Vicryl suture. The anterior abdominal wall fascia and external oblique were closed with interrupted 0 Ethibond sutures. An ON-Q device was placed anterior to the fascial closure. The subcutaneous fat was closed with running 3-0 Vicryl suture and interrupted 3-0 Vicryl sutures more anteriorly. The skin was then closed with skin andreas. The supraumbilical port site was closed with interrupted 0 Vicryl sutures and the skin was closed with andreas. Sterile dressings were applied. The patient was transferred to the PACU in stable condition. PETROS BAILON /[id number] MARBELLA
[2017-11-24] MEDS ORDERED: Cyclobenzaprine 5 MG Tab PO SCH (21:00)
[2017-11-25] MEDS: Sodium Chloride 0.9% 1,000 ML IV SCH ×2 (01:51→06:58)
[2017-11-25] MEDS: Piperacillin/Tazobactam 3.375 GM in Sodium Chloride 0.9% 50 ML IV SCH ×4 (03:49→20:45)
[2017-11-25 06:48] LABS: CHLORIDE,CL 106 mmol/L (98-107); SODIUM,NA 139 mmol/L (136-148)
--- NOTE | 2017-11-25 07:02 | PCM.POSTAN ---
POST ANESTHESIA ASSESSMENT - MENTAL STATUS Mental Status: Alert, Oriented - RESPIRATORY Respiratory Status: Respiratory Rate WNL, Airway Patent, O2 Saturation Stable - CARDIOVASCULAR CV Status: Pulse Rate WNL, Blood Pressure Stable - GASTROINTESTINAL GI Status: No Symptoms - PAIN Pain Score: 1 - POST OP HYDRATION Hydration Status: Adequate & Stable
--- NOTE | 2017-11-25 07:03 | PCM48HPAN ---
Post Anesthesia Note - EVALUATION WITHIN 48HRS OF ANESTHETIC Vital Signs in Normal Range: Yes Patient Participated in Evaluation: Yes Respiratory Function Stable: Yes Airway Patent: Yes Cardiovascular Function Stable: Yes Hydration Status Stable: Yes Pain Control Satisfactory: Yes Nausea and Vomiting Control Satisfactory: Yes Mental Status Recovered: Yes Resp Rate: 23 Blood Pressure: 136/78
[2017-11-25] MEDS ORDERED: Magnesium Sulfate/Water 4 GM in Premix Bag 1 BAG IV ONE (07:11)
--- NOTE | 2017-11-25 08:14 | PCM.SURGPN ---
- General Info Date of Service: 11/25/17 Date of Surgery/Procedure: 11/24/17 POD#: 1 Functional Status: Reports: Pain Controlled, Other (Vitals stable overnight. Afebrile. Abdominal pain well controlled. UOP increased overnight. ) - Review of Systems General: Reports: No Symptoms HEENT: Reports: Sore Throat Pulmonary: Reports: No Symptoms Cardiovascular: Reports: No Symptoms Gastrointestinal: Reports: No Symptoms - Patient Data Vitals - Most Recent: Last Vital Signs Temp 37.7 C 11/25/17 04:00 Pulse 86 11/24/17 18:40 Resp 23 H 11/25/17 07:03 BP 136/78 11/25/17 07:03 Pulse Ox 94 L 11/25/17 06:00 Weight - Most Recent: 121.8 kg I&O - Last 24 Hours: Intake & Output 11/24/17 11/25/17 11/25/17 22:59 06:59 14:59 Intake Total 5100 2614 Output Total 425 1180 Balance 4675 1434 Lab Results Last 24 Hrs: Laboratory Results - last 24 hr 11/24/17 11/24/17 11/25/17 Range/Units 18:14 18:14 05:40 WBC 15.85 H 16.55 H (4.0-11.0) K/uL RBC 4.54 4.09 L (4.50-5.90) M/uL Hgb 14.2 12.9 L (13.0-17.0) g/dL Hct 42.3 38.3 (38.0-50.0) % MCV 93.2 93.6 (80.0-98.0) fL MCH 31.3 31.5 (27.0-32.0) pg MCHC 33.6 33.7 (31.0-37.0) g/dL RDW Std Deviation 47.0 47.8 (28.0-62.0) fl RDW Coeff of Royal 14 14 (11.0-15.0) % Plt Count 232 221 (150-400) K/uL MPV 9.80 9.70 (7.40-12.00) fL Neut % (Auto) 74.3 (48.0-80.0) % Lymph % (Auto) 15.2 L (16.0-40.0) % [place] % (Auto) 7.5 (0.0-15.0) % Eos % (Auto) 2.7 (0.0-7.0) % Baso % (Auto) 0.3 (0.0-1.5) % Neut # (Auto) 11.8 H (1.4-5.7) K/uL Lymph # (Auto) 2.4 (0.6-2.4) K/uL [place] # (Auto) 1.2 H (0.0-0.8) K/uL Eos # (Auto) 0.4 (0.0-0.7) K/uL Baso # (Auto) 0.1 (0.0-0.1) K/uL Nucleated RBC % 0.0 0.0 /100WBC Nucleated RBCs # 0 0 K/uL Sodium (136-148) mmol/L Potassium (3.5-5.1) mmol/L Chloride (98-107) mmol/L Carbon Dioxide (21.0-32.0) mmol/L BUN 11 (7.0-18.0) mg/dL Creatinine 0.8 (0.8-1.3) mg/dL Est Cr Clr Drug Dosing 146.17 mL/min Estimated GFR (MDRD) > 60.0 ml/min Glucose (74-106) mg/dL Calcium (8.5-10.1) mg/dL Phosphorus (2.6-4.7) mg/dL Magnesium (1.5-2.0) mg/dL Total Bilirubin (0.2-1.0) mg/dL AST (15-37) IU/L ALT (14-63) IU/L Alkaline Phosphatase (46-116) U/L Total Protein (6.4-8.2) g/dL Albumin (3.4-5.0) g/dL Globulin (2.0-3.5) g/dL Albumin/Globulin Ratio (1.3-2.8) 11/25/17 Range/Units 05:40 WBC (4.0-11.0) K/uL RBC (4.50-5.90) M/uL Hgb (13.0-17.0) g/dL Hct (38.0-50.0) % MCV (80.0-98.0) fL MCH (27.0-32.0) pg MCHC (31.0-37.0) g/dL RDW Std Deviation (28.0-62.0) fl RDW Coeff of Royal (11.0-15.0) % Plt Count (150-400) K/uL MPV (7.40-12.00) fL Neut % (Auto) (48.0-80.0) % Lymph % (Auto) (16.0-40.0) % [place] % (Auto) (0.0-15.0) % Eos % (Auto) (0.0-7.0) % Baso % (Auto) (0.0-1.5) % Neut # (Auto) (1.4-5.7) K/uL Lymph # (Auto) (0.6-2.4) K/uL [place] # (Auto) (0.0-0.8) K/uL Eos # (Auto) (0.0-0.7) K/uL Baso # (Auto) (0.0-0.1) K/uL Nucleated RBC % /100WBC Nucleated RBCs # K/uL Sodium 139 (136-148) mmol/L Potassium 3.6 (3.5-5.1) mmol/L Chloride 106 (98-107) mmol/L Carbon Dioxide 25.6 (21.0-32.0) mmol/L BUN 9 (7.0-18.0) mg/dL Creatinine 0.7 L (0.8-1.3) mg/dL Est Cr Clr Drug Dosing 167.06 mL/min Estimated GFR (MDRD) > 60.0 ml/min Glucose 99 (74-106) mg/dL Calcium 7.6 L (8.5-10.1) mg/dL Phosphorus 3.8 (2.6-4.7) mg/dL Magnesium 1.3 L (1.5-2.0) mg/dL Total Bilirubin 1.2 H (0.2-1.0) mg/dL AST 61 H (15-37) IU/L ALT 68 H (14-63) IU/L Alkaline Phosphatase 39 L (46-116) U/L Total Protein 5.6 L (6.4-8.2) g/dL Albumin 2.5 L (3.4-5.0) g/dL Globulin 3.1 (2.0-3.5) g/dL Albumin/Globulin Ratio 0.8 L (1.3-2.8) Med Orders - Current: Current Medications Cyclobenzaprine HCl (Flexeril) 5 mg PO TID [facility] Fentanyl (Sublimaze) 50 mcg IVPUSH Q5M PRN PRN Reason: Pain (severe 7-10) Stop: 11/25/17 17:54 Hydromorphone HCl (Dilaudid Jute Bag Sewer 6 Mg In Ns 30 Ml) 6 mg IV ASDIRECTED PRN; Protocol PRN Reason: Abdominal Pain Last Admin: 11/24/17 19:36 Dose: 6 mg Piperacillin Sod/Tazobactam (Sod 3.375 gm/ Sodium Chloride) 50 mls @ 100 mls/ hr IV Q6H [facility] Last Admin: 11/25/17 03:49 Dose: 100 mls/hr Sodium Chloride (Normal Saline) 1,000 mls @ 200 mls/hr IV ASDIRECTED [facility] Last Admin: 11/25/17 06:58 Dose: 200 mls/hr Sodium Chloride (Normal Saline) 1,000 mls @ 1,000 mls/hr IV ASDIRECTED [facility] Last Admin: 11/24/17 18:53 Dose: 1,000 mls/hr Magnesium Sulfate 4 gm/ Premix 100 mls @ 50 mls/hr IV ONETIME ONE Stop: 11/25/17 09:10 Last Admin: 11/25/17 07:43 Dose: 50 mls/hr Pantoprazole Sodium (Protonix Iv) 40 mg IVPUSH DAILY [facility] Last Admin: 11/24/17 09:47 Dose: 40 mg Discontinued Medications Aspirin (Aspirin) 324 mg PO ONETIME ONE Stop: 11/22/17 11:47 Last Admin: 11/22/17 12:01 Dose: 324 mg Bupivacaine HCl (Marcaine 0.5%) Confirm Administered Dose 30 ml .ROUTE .STK-MED ONE Stop: 11/24/17 14:48 Bupivacaine HCl (Marcaine 0.5%) Confirm Administered Dose 90 ml .ROUTE .STK-MED ONE Stop: 11/24/17 16:21 Bupivacaine HCl (Marcaine 0.5%) Confirm Administered Dose 30 ml .ROUTE .STK-MED ONE Stop: 11/24/17 16:21 Al Hydroxide/Mg Hydroxide 15 (ml/ Lidocaine HCl 5 ml) 0 ml PO ONETIME ONE Stop: 11/22/17 14:38 Last Admin: 11/22/17 15:31 Dose: Not Given Al Hydroxide/Mg Hydroxide 15 (ml/ Lidocaine HCl 5 ml) 0 ml PO ONETIME ONE Stop: 11/22/17 15:16 Last Admin: 11/22/17 15:27 Dose: 1 each Cyclobenzaprine HCl (Flexeril) 5 mg PO BID KAREN Diazepam (Valium) 5 mg IV Q6HR PRN PRN Reason: Muscle Spasm Last Admin: 11/25/17 00:25 Dose: 5 mg Enoxaparin Sodium (Lovenox) 40 mg SUBCUT Q24H KAREN Last Admin: 11/22/17 15:29 Dose: Not Given Fentanyl (Sublimaze) Confirm Administered Dose 250 mcg .ROUTE .STK-MED ONE Stop: 11/24/17 14:31 Fentanyl (Sublimaze) Confirm Administered Dose 100 mcg .ROUTE .STK-MED ONE Stop: 11/24/17 15:23 Fentanyl (Sublimaze) Confirm Administered Dose 100 mcg .ROUTE .STK-MED ONE Stop: 11/24/17 16:42 Gadobenate Dimeglumine (Multihance) 20 ml IVPUSH ONETIME STA Stop: 11/23/17 13:21 Last Admin: 11/23/17 13:30 Dose: 20 ml Glycopyrrolate (Robinul) Confirm Administered Dose 0.2 mg .ROUTE .STK-MED ONE Stop: 11/24/17 16:08 Glycopyrrolate (Robinul) Confirm Administered Dose 0.4 mg .ROUTE .STK-MED ONE Stop: 11/24/17 17:08 Hydromorphone HCl (Dilaudid) 1 mg IVPUSH Q3H PRN PRN Reason: Pain Hydromorphone HCl (Dilaudid) Confirm Administered Dose 2 mg .ROUTE .STK-MED ONE Stop: 11/24/17 17:13 Sodium Chloride (Normal Saline) 1,000 mls @ 999 mls/hr IV STAT ONE Stop: 11/22/17 12:46 Last Admin: 11/22/17 12:02 Dose: 999 mls/hr Sodium Chloride (Normal Saline) 1,000 mls @ 125 mls/hr IV STAT KAREN Last Admin: 11/22/17 14:08 Dose: 125 mls/hr Iopamidol (Isovue Multipack-370 (76%)) 100 ml IVPUSH ONETIME STA Stop: 11/22/17 13:08 Last Admin: 11/22/17 13:08 Dose: 100 ml Ketorolac Tromethamine (Toradol) 30 mg IVPUSH ONETIME ONE Stop: 11/22/17 13:52 Last Admin: 11/22/17 14:08 Dose: 30 mg Ketorolac Tromethamine (Toradol) 15 mg IVPUSH Q6H PRN PRN Reason: Pain Stop: 11/27/17 15:21 Last Admin: 11/23/17 20:27 Dose: 15 mg Labetalol HCl (Normodyne) Confirm Administered Dose 100 mg .ROUTE .STK-MED ONE Stop: 11/24/17 15:47 Lidocaine HCl (Xylocaine-Mpf 1%) Confirm Administered Dose 5 ml .ROUTE .STK-MED ONE Stop: 11/24/17 14:14 Midazolam HCl (Versed 1 Mg/Ml) Confirm Administered Dose 2 mg .ROUTE .STK-MED ONE Stop: 11/24/17 14:14 Midazolam HCl (Versed 1 Mg/Ml) Confirm Administered Dose 2 mg .ROUTE .STK-MED ONE Stop: 11/24/17 14:31 Morphine Sulfate (Morphine) 2 mg IVPUSH ONETIME ONE Stop: 11/22/17 11:47 Last Admin: 11/22/17 13:06 Dose: Not Given Neostigmine Methylsulfate (Neostigmine) Confirm Administered Dose 5 mg .ROUTE .STK-MED ONE Stop: 11/24/17 17:08 Nitroglycerin (Nitrostat) 0.4 mg SL Q5M PRN PRN Reason: Chest Pain Last Admin: 11/22/17 12:24 Dose: 0.4 mg Ondansetron HCl (Zofran) Confirm Administered Dose 4 mg .ROUTE .STK-MED ONE Stop: 11/24/17 14:31 Pantoprazole Sodium (Protonix Iv) 80 mg IVPUSH .BOLUS ONE Stop: 11/22/17 11:47 Last Admin: 11/22/17 12:02 Dose: 80 mg Propofol (Diprivan 20 Ml) Confirm Administered Dose 200 mg .ROUTE .STK-MED ONE Stop: 11/24/17 14:31 Rocuronium [place] (Zemuron) Confirm Administered Dose 100 mg .ROUTE .STK-MED ONE Stop: 11/24/17 14:31 Succinylcholine Chloride (Quelicin) Confirm Administered Dose 200 mg .ROUTE .STK -MED ONE Stop: 11/24/17 14:31 Temazepam (Restoril) 15 mg PO BEDTIME PRN PRN Reason: Sleep Last Admin: 11/24/17 00:18 Dose: 15 mg - Exam Wound/Incisions: Dressing Dry and Intact, No Drainage Quality Assessment: Supplemental Oxygen General: Alert, Oriented HEENT: Pupils Equal, Pupils Reactive Neck: Supple Lungs: Normal Respiratory Effort Cardiovascular: Regular Rate GI/Abdominal Exam: Soft, Non-Tender, Distended (mild). No: Guarding, Rigid, Rebound Skin: Warm, Dry, Intact Neurological: No New Focal Deficit Psy/Mental Status: Alert, Normal Affect, Normal Mood Physical Findings Comment:: Abdominal drain with serosanguinous output. There appears to be bile staining in the fluid as well. - Problem List & Annotations (1) Epigastric pain SNOMED Code(s): 25250913 Code(s): R10.13 - EPIGASTRIC PAIN Status: Acute Current Visit: Yes (2) Acute cholecystitis due to biliary calculus SNOMED Code(s): 91447224617592 Code(s): K80.00 - CALCULUS OF GALLBLADDER W ACUTE CHOLECYST W/O OBSTRUCTION Status: Acute Current Visit: Yes - Problem List Review Problem List Initiated/Reviewed/Updated: Yes - My Orders Last 24 Hours: Active Orders 24 hr Category Date Time Status Transfer Patient (Change bed) [ADT] Routine ADT 11/25/17 07:23 Ordered Bradycardia-Neuroaxis [employer] [RC] ROUTINE Care 11/24/17 17:54 Active Drain Management [RC] Q4H Care 11/24/17 17:55 Active Gastrointestinal Tube Mgmt [RC] Q4H Care 11/24/17 17:53 Active Hypertension-Neuroaxis [employer] [RC] ROUTINE Care 11/24/17 17:54 Active Hypotension-Neuroaxis [employer] [RC] ROUTINE Care 11/24/17 17:54 Active Notify Provider Intake and Out [RC] PRN Care 11/24/17 17:54 Active Notify Provider Vital Signs [RC] PRN Care 11/24/17 17:53 Active Vital Signs [RC] Q1H Care 11/24/17 17:52 Active Clear Liquid Diet [DIET] Diet 11/25/17 Lunch Active CBC W/O DIFF,HEMOGRAM [HEME] AM Lab 11/26/17 05:11 Ordered CBC W/O DIFF,HEMOGRAM [HEME] AM Lab 11/27/17 05:11 Ordered COMPREHENSIVE METABOLIC PN,CMP [CHEM] AM Lab 11/26/17 05:11 Ordered COMPREHENSIVE METABOLIC PN,CMP [CHEM] AM Lab 11/27/17 05:11 Ordered COMPREHENSIVE METABOLIC PN,CMP [CHEM] AM Lab 11/28/17 05:11 Ordered MAGNESIUM [CHEM] AM Lab 11/26/17 05:11 Ordered MAGNESIUM [CHEM] AM Lab 11/27/17 05:11 Ordered MAGNESIUM [CHEM] AM Lab 11/28/17 05:11 Ordered PHOSPHORUS [CHEM] AM Lab 11/26/17 05:11 Ordered PHOSPHORUS [CHEM] AM Lab 11/27/17 05:11 Ordered PHOSPHORUS [CHEM] AM Lab 11/28/17 05:11 Ordered Cyclobenzaprine [Flexeril] Med 11/25/17 14:00 Active 5 mg PO TID HYDROmorphone/Normal Saline [Dilaudid [employer] 6 MG in NS 30 Med 11/24/17 17:58 Active ML] 6 mg IV ASDIRECTED PRN Magnesium Sulfate/Water [Magnesium Sulfate 4 GM in Med 11/25/17 07:11 Active Water 100 ML] 4 gm Premix Bag 1 bag IV ONETIME Sodium Chloride 0.9% [Normal Saline] 1,000 ml Med 11/24/17 18:15 Active IV ASDIRECTED fentaNYL [Sublimaze] Med 11/24/17 17:53 Active 50 mcg IVPUSH Q5M PRN NG [Nasogastric Orogastric Tube Removal] [OM.PC] Oth 11/25/17 07:11 Ordered Routine Medication Orders Cyclobenzaprine HCl (Flexeril) 5 mg PO TID KAREN Fentanyl (Sublimaze) 50 mcg IVPUSH Q5M PRN PRN Reason: Pain (severe 7-10) Stop: 11/25/17 17:54 Hydromorphone HCl (Dilaudid Jute Bag Sewer 6 Mg In Ns 30 Ml) 6 mg IV ASDIRECTED PRN; Protocol PRN Reason: Abdominal Pain Last Admin: 11/24/17 19:36 Dose: 6 mg Piperacillin Sod/Tazobactam (Sod 3.375 gm/ Sodium Chloride) 50 mls @ 100 mls/ hr IV Q6H [facility] Last Admin: 11/25/17 03:49 Dose: 100 mls/hr Infusion: 11/24/17 22:39 Dose: 100 mls/hr Admin: 11/24/17 22:09 Dose: 100 mls/hr Infusion: 11/24/17 18:30 Dose: 100 mls/hr Admin: 11/24/17 18:00 Dose: 100 mls/hr Infusion: 11/24/17 10:24 Dose: 100 mls/hr Admin: 11/24/17 09:54 Dose: 100 mls/hr Infusion: 11/24/17 02:58 Dose: 100 mls/hr Admin: 11/24/17 02:28 Dose: 100 mls/hr Infusion: 11/23/17 20:44 Dose: 100 mls/hr Admin: 11/23/17 20:14 Dose: 100 mls/hr Infusion: 11/23/17 15:36 Dose: 100 mls/hr Admin: 11/23/17 15:06 Dose: 100 mls/hr Infusion: 11/23/17 11:00 Dose: 100 mls/hr Admin: 11/23/17 10:30 Dose: 100 mls/hr Infusion: 11/23/17 03:38 Dose: 100 mls/hr Admin: 11/23/17 03:08 Dose: 100 mls/hr Infusion: 11/22/17 21:11 Dose: 100 mls/hr Admin: 11/22/17 20:41 Dose: 100 mls/hr Infusion: 11/22/17 15:49 Dose: 100 mls/hr Admin: 11/22/17 15:19 Dose: 100 mls/hr Sodium Chloride (Normal Saline) 1,000 mls @ 200 mls/hr IV ASDIRECTED [facility] Last Admin: 11/25/17 06:58 Dose: 200 mls/hr Infusion: 11/25/17 06:51 Dose: 200 mls/hr Admin: 11/25/17 01:51 Dose: 200 mls/hr Infusion: 11/25/17 01:49 Dose: 200 mls/hr Infusion: 11/24/17 22:12 Dose: 200 mls/hr Admin: 11/24/17 19:58 Dose: 125 mls/hr Infusion: 11/24/17 17:42 Dose: 125 mls/hr Admin: 11/24/17 09:42 Dose: 125 mls/hr Infusion: 11/24/17 09:18 Dose: 125 mls/hr Admin: 11/24/17 01:18 Dose: 125 mls/hr Infusion: 11/24/17 01:18 Dose: 125 mls/hr Admin: 11/23/17 17:40 Dose: 125 mls/hr Infusion: 11/23/17 15:45 Dose: 125 mls/hr Admin: 11/23/17 07:45 Dose: 125 mls/hr Infusion: 11/23/17 05:59 Dose: 125 mls/hr Admin: 11/22/17 21:59 Dose: 125 mls/hr Sodium Chloride (Normal Saline) 1,000 mls @ 1,000 mls/hr IV ASDIRECTED [facility] Last Admin: 11/24/17 18:53 Dose: 1,000 mls/hr Magnesium Sulfate 4 gm/ Premix 100 mls @ 50 mls/hr IV ONETIME ONE Stop: 11/25/17 09:10 Last Admin: 11/25/17 07:43 Dose: 50 mls/hr Pantoprazole Sodium (Protonix Iv) 40 mg IVPUSH DAILY [facility] Last Admin: 11/24/17 09:47 Dose: 40 mg Admin: 11/23/17 10:30 Dose: 40 mg - Assessment Assessment (Free Text/Narrative):: Severe hemorrhagic cholecystitis - Plan Plan (Free Text/Narrative):: Pain: IV dilaudid [employer], d/c valium, start scheduled muscle relaxant (Flexeril 5mg TID) Cardiovascular: Vitals stable Encourage IS use GI: Remove NG ok to start clear liquids. All LFTs elevated slightly (due to surgery) Bilirubin stable. Continue to monitor Renal: BUN/Cr stable. UOP adequate. Remove brennan once more mobile. Replace mag. Continue NS @ 200ml/hr. ID: WBC elevated. Afebrile. Most likely due to surgery. Continue Zosyn Heme: Decreased as expected with a 600ml blood loss. Will continue to monitor. Can be transferred out of ICU today.
[2017-11-25] MEDS: Pantoprazole 40 MG Vial IVPUSH SCH (09:36)
[2017-11-25] MEDS ORDERED: Sodium Chloride 0.9% 1,000 ML IV SCH (11:15)
[2017-11-25] MEDS: HYDROmorphone/Normal Saline 6 MG/30 ML PCA Vial IV PRN (11:52)
[2017-11-25] MEDS: Cyclobenzaprine 5 MG Tab PO SCH ×2 (14:10→22:03)
[2017-11-25] MEDS ORDERED: Acetaminophen 325 MG Tab PO PRN (23:15)
[2017-11-26] MEDS: Piperacillin/Tazobactam 3.375 GM in Sodium Chloride 0.9% 50 ML IV SCH ×4 (03:12→21:25)
[2017-11-26 06:25] LABS: CHLORIDE,CL 103 mmol/L (98-107); SODIUM,NA 135 mmol/L (136-148)
[2017-11-26] MEDS: Cyclobenzaprine 5 MG Tab PO SCH ×3 (06:29→21:25)
[2017-11-26] MEDS ORDERED: HYDROmorphone 1 MG/ML Syringe IVPUSH PRN (08:23)
[2017-11-26] MEDS ORDERED: oxyCODONE 5 MG Tab PO PRN (08:23)
[2017-11-26] MEDS ORDERED: Acetaminophen 325 MG/10.15 ML ML PO PRN (08:24)
--- NOTE | 2017-11-26 08:35 | PCM.SURGPN ---
- General Info Date of Service: 11/26/17 Date of Surgery/Procedure: 11/24/17 POD#: 2 Post-Op Diagnosis: Severe hemorrhagic acute cholelithiasis due to choledocholithiasis Functional Status: Reports: Pain Controlled, Tolerating Diet, Ambulating, Urinating, Other (Patient passing flatus) - Review of Systems General: Reports: No Symptoms Pulmonary: Reports: No Symptoms Cardiovascular: Reports: No Symptoms Gastrointestinal: Reports: No Symptoms Genitourinary: Reports: No Symptoms - Patient Data Vitals - Most Recent: Last Vital Signs Temp 37.3 C 11/26/17 04:00 Pulse 80 11/26/17 04:00 Resp 18 11/26/17 04:00 BP 107/64 11/26/17 04:00 Pulse Ox 95 11/26/17 04:00 Weight - Most Recent: 124.2 kg I&O - Last 24 Hours: Intake & Output 11/25/17 11/26/17 11/26/17 22:59 06:59 14:59 Intake Total 5959 2673 Output Total 670 3210 Balance 5329 -823 Lab Results Last 24 Hrs: Laboratory Results - last 24 hr 11/26/17 11/26/17 Range/Units 05:49 05:49 WBC 12.96 H (4.0-11.0) K/uL RBC 3.82 L (4.50-5.90) M/uL Hgb 11.9 L (13.0-17.0) g/dL Hct 35.1 L (38.0-50.0) % MCV 91.9 (80.0-98.0) fL MCH 31.2 (27.0-32.0) pg MCHC 33.9 (31.0-37.0) g/dL RDW Std Deviation 45.2 (28.0-62.0) fl RDW Coeff of Royal 14 (11.0-15.0) % Plt Count 224 (150-400) K/uL MPV 9.10 (7.40-12.00) fL Nucleated RBC % 0.0 /100WBC Nucleated RBCs # 0 K/uL Sodium 135 L (136-148) mmol/L Potassium 3.4 L (3.5-5.1) mmol/L Chloride 103 (98-107) mmol/L Carbon Dioxide 26.9 (21.0-32.0) mmol/L BUN 5 L (7.0-18.0) mg/dL Creatinine 0.8 (0.8-1.3) mg/dL Est Cr Clr Drug Dosing TNP Estimated GFR (MDRD) > 60.0 ml/min Glucose 96 (74-106) mg/dL Calcium 8.1 L (8.5-10.1) mg/dL Phosphorus 2.5 L (2.6-4.7) mg/dL Magnesium 1.8 (1.5-2.0) mg/dL Total Bilirubin 1.6 H (0.2-1.0) mg/dL AST 43 H (15-37) IU/L ALT 55 (14-63) IU/L Alkaline Phosphatase 46 (46-116) U/L Total Protein 6.0 L (6.4-8.2) g/dL Albumin 2.6 L (3.4-5.0) g/dL Globulin 3.4 (2.0-3.5) g/dL Albumin/Globulin Ratio 0.8 L (1.3-2.8) Med Orders - Current: Current Medications Acetaminophen (Tylenol) 325 mg PO Q4H PRN PRN Reason: Fever Cyclobenzaprine HCl (Flexeril) 5 mg PO TID [facility] Last Admin: 11/26/17 06:29 Dose: 5 mg Hydromorphone HCl (Dilaudid) 0.5 mg IVPUSH Q1H PRN PRN Reason: Abdominal Pain Piperacillin Sod/Tazobactam (Sod 3.375 gm/ Sodium Chloride) 50 mls @ 100 mls/ hr IV Q6H [facility] Last Admin: 11/26/17 03:12 Dose: 100 mls/hr Oxycodone HCl (Oxycodone) 10 mg PO Q4H PRN PRN Reason: Abdominal Pain Polyethylene Glycol (Miralax) 17 gm PO DAILY [facility] Discontinued Medications Acetaminophen (Tylenol) 650 mg PO Q6H PRN PRN Reason: Fever Last Admin: 11/26/17 00:30 Dose: 650 mg Aspirin (Aspirin) 324 mg PO ONETIME ONE Stop: 11/22/17 11:47 Last Admin: 11/22/17 12:01 Dose: 324 mg Bupivacaine HCl (Marcaine 0.5%) Confirm Administered Dose 30 ml .ROUTE .STK-MED ONE Stop: 11/24/17 14:48 Bupivacaine HCl (Marcaine 0.5%) Confirm Administered Dose 90 ml .ROUTE .STK-MED ONE Stop: 11/24/17 16:21 Bupivacaine HCl (Marcaine 0.5%) Confirm Administered Dose 30 ml .ROUTE .STK-MED ONE Stop: 11/24/17 16:21 Al Hydroxide/Mg Hydroxide 15 (ml/ Lidocaine HCl 5 ml) 0 ml PO ONETIME ONE Stop: 11/22/17 14:38 Last Admin: 11/22/17 15:31 Dose: Not Given Al Hydroxide/Mg Hydroxide 15 (ml/ Lidocaine HCl 5 ml) 0 ml PO ONETIME ONE Stop: 11/22/17 15:16 Last Admin: 11/22/17 15:27 Dose: 1 each Cyclobenzaprine HCl (Flexeril) 5 mg PO BID KAREN Diazepam (Valium) 5 mg IV Q6HR PRN PRN Reason: Muscle Spasm Last Admin: 11/25/17 00:25 Dose: 5 mg Enoxaparin Sodium (Lovenox) 40 mg SUBCUT Q24H KAREN Last Admin: 11/22/17 15:29 Dose: Not Given Fentanyl (Sublimaze) Confirm Administered Dose 250 mcg .ROUTE .STK-MED ONE Stop: 11/24/17 14:31 Fentanyl (Sublimaze) Confirm Administered Dose 100 mcg .ROUTE .STK-MED ONE Stop: 11/24/17 15:23 Fentanyl (Sublimaze) Confirm Administered Dose 100 mcg .ROUTE .STK-MED ONE Stop: 11/24/17 16:42 Fentanyl (Sublimaze) 50 mcg IVPUSH Q5M PRN PRN Reason: Pain (severe 7-10) Stop: 11/25/17 17:54 Gadobenate Dimeglumine (Multihance) 20 ml IVPUSH ONETIME STA Stop: 11/23/17 13:21 Last Admin: 11/23/17 13:30 Dose: 20 ml Glycopyrrolate (Robinul) Confirm Administered Dose 0.2 mg .ROUTE .STK-MED ONE Stop: 11/24/17 16:08 Glycopyrrolate (Robinul) Confirm Administered Dose 0.4 mg .ROUTE .STK-MED ONE Stop: 11/24/17 17:08 Hydromorphone HCl (Dilaudid) 1 mg IVPUSH Q3H PRN PRN Reason: Pain Hydromorphone HCl (Dilaudid) Confirm Administered Dose 2 mg .ROUTE .STK-MED ONE Stop: 11/24/17 17:13 Hydromorphone HCl (Dilaudid Recreation Superintendent 6 Mg In Ns 30 Ml) 6 mg IV ASDIRECTED PRN; Protocol PRN Reason: Abdominal Pain Last Admin: 11/25/17 11:52 Dose: 6 mg Sodium Chloride (Normal Saline) 1,000 mls @ 999 mls/hr IV STAT ONE Stop: 11/22/17 12:46 Last Admin: 11/22/17 12:02 Dose: 999 mls/hr Sodium Chloride (Normal Saline) 1,000 mls @ 125 mls/hr IV STAT KAREN Last Admin: 11/22/17 14:08 Dose: 125 mls/hr Sodium Chloride (Normal Saline) 1,000 mls @ 200 mls/hr IV ASDIRECTED KAREN Last Infusion: 11/25/17 12:00 Dose: Infused Sodium Chloride (Normal Saline) 1,000 mls @ 1,000 mls/hr IV ASDIRECTED KAREN Last Admin: 11/24/17 18:53 Dose: 1,000 mls/hr Magnesium Sulfate 4 gm/ Premix 100 mls @ 50 mls/hr IV ONETIME ONE Stop: 11/25/17 09:10 Last Admin: 11/25/17 07:43 Dose: 50 mls/hr Sodium Chloride (Normal Saline) 1,000 mls @ 100 mls/hr IV ASDIRECTED [facility] Last Admin: 11/25/17 20:46 Dose: 100 mls/hr Iopamidol (Isovue Multipack-370 (76%)) 100 ml IVPUSH ONETIME STA Stop: 11/22/17 13:08 Last Admin: 11/22/17 13:08 Dose: 100 ml Ketorolac Tromethamine (Toradol) 30 mg IVPUSH ONETIME ONE Stop: 11/22/17 13:52 Last Admin: 11/22/17 14:08 Dose: 30 mg Ketorolac Tromethamine (Toradol) 15 mg IVPUSH Q6H PRN PRN Reason: Pain Stop: 11/27/17 15:21 Last Admin: 11/23/17 20:27 Dose: 15 mg Labetalol HCl (Normodyne) Confirm Administered Dose 100 mg .ROUTE .STK-MED ONE Stop: 11/24/17 15:47 Lidocaine HCl (Xylocaine-Mpf 1%) Confirm Administered Dose 5 ml .ROUTE .STK-MED ONE Stop: 11/24/17 14:14 Midazolam HCl (Versed 1 Mg/Ml) Confirm Administered Dose 2 mg .ROUTE .STK-MED ONE Stop: 11/24/17 14:14 Midazolam HCl (Versed 1 Mg/Ml) Confirm Administered Dose 2 mg .ROUTE .STK-MED ONE Stop: 11/24/17 14:31 Morphine Sulfate (Morphine) 2 mg IVPUSH ONETIME ONE Stop: 11/22/17 11:47 Last Admin: 11/22/17 13:06 Dose: Not Given Neostigmine Methylsulfate (Neostigmine) Confirm Administered Dose 5 mg .ROUTE .STK-MED ONE Stop: 11/24/17 17:08 Nitroglycerin (Nitrostat) 0.4 mg SL Q5M PRN PRN Reason: Chest Pain Last Admin: 11/22/17 12:24 Dose: 0.4 mg Ondansetron HCl (Zofran) Confirm Administered Dose 4 mg .ROUTE .STK-MED ONE Stop: 11/24/17 14:31 Pantoprazole Sodium (Protonix Iv) 80 mg IVPUSH .BOLUS ONE Stop: 11/22/17 11:47 Last Admin: 11/22/17 12:02 Dose: 80 mg Pantoprazole Sodium (Protonix Iv) 40 mg IVPUSH DAILY KAREN Last Admin: 11/25/17 09:36 Dose: 40 mg Propofol (Diprivan 20 Ml) Confirm Administered Dose 200 mg .ROUTE .STK-MED ONE Stop: 11/24/17 14:31 Rocuronium [place] (Zemuron) Confirm Administered Dose 100 mg .ROUTE .STK-MED ONE Stop: 11/24/17 14:31 Succinylcholine Chloride (Quelicin) Confirm Administered Dose 200 mg .ROUTE .STK -MED ONE Stop: 11/24/17 14:31 Temazepam (Restoril) 15 mg PO BEDTIME PRN PRN Reason: Sleep Last Admin: 11/24/17 00:18 Dose: 15 mg - Exam Wound/Incisions: Other (Dressings removed this morning. Some bruising along right subcostal incision. A small amount of bile on the drain sponge around exit site. Drain with seronsanguinous output. Less bile staining today in the drain than yesterday. ) General: Alert, Oriented HEENT: Pupils Equal, Pupils Reactive Lungs: Clear to Auscultation, Normal Respiratory Effort Cardiovascular: Regular Rate, Regular Rhythm GI/Abdominal Exam: Soft, Non-Tender, No Distention, No Mass Skin: Warm, Dry, Intact Neurological: No New Focal Deficit Psy/Mental Status: Alert, Normal Affect, Normal Mood - Problem List & Annotations (1) Epigastric pain SNOMED Code(s): 29687795 Code(s): R10.13 - EPIGASTRIC PAIN Status: Acute Current Visit: Yes (2) Acute cholecystitis due to biliary calculus SNOMED Code(s): 57299622078830 Code(s): K80.00 - CALCULUS OF GALLBLADDER W ACUTE CHOLECYST W/O OBSTRUCTION Status: Acute Current Visit: Yes - Problem List Review Problem List Initiated/Reviewed/Updated: Yes - My Orders Last 24 Hours: Active Orders 24 hr Category Date Time Status Clear Liquid Diet [DIET] Diet 11/25/17 Lunch Active CBC W/O DIFF,HEMOGRAM [HEME] AM Lab 11/27/17 05:11 Ordered CMP [COMPREHENSIVE METABOLIC PN,CMP] [CHEM] Routine Lab 11/26/17 12:00 Ordered COMPREHENSIVE METABOLIC PN,CMP [CHEM] AM Lab 11/27/17 05:11 Ordered COMPREHENSIVE METABOLIC PN,CMP [CHEM] AM Lab 11/28/17 05:11 Ordered MAGNESIUM [CHEM] AM Lab 11/27/17 05:11 Ordered MAGNESIUM [CHEM] AM Lab 11/28/17 05:11 Ordered PHOSPHORUS [CHEM] AM Lab 11/27/17 05:11 Ordered PHOSPHORUS [CHEM] AM Lab 11/28/17 05:11 Ordered Acetaminophen [Tylenol] Med 11/26/17 08:24 Active 325 mg PO Q4H PRN Cyclobenzaprine [Flexeril] Med 11/25/17 14:00 Active 5 mg PO TID HYDROmorphone [Dilaudid] Med 11/26/17 08:23 Active 0.5 mg IVPUSH Q1H PRN Polyethylene Glycol 3350 [MiraLAX] Med 11/26/17 09:00 Active 17 gm PO DAILY oxyCODONE Med 11/26/17 08:23 Active 10 mg PO Q4H PRN Medication Orders Acetaminophen (Tylenol) 325 mg PO Q4H PRN PRN Reason: Fever Cyclobenzaprine HCl (Flexeril) 5 mg PO TID [facility] Last Admin: 11/26/17 06:29 Dose: 5 mg Admin: 11/25/17 22:03 Dose: 5 mg Admin: 11/25/17 14:10 Dose: 5 mg Hydromorphone HCl (Dilaudid) 0.5 mg IVPUSH Q1H PRN PRN Reason: Abdominal Pain Piperacillin Sod/Tazobactam (Sod 3.375 gm/ Sodium Chloride) 50 mls @ 100 mls/ hr IV Q6H [facility] Last Admin: 11/26/17 03:12 Dose: 100 mls/hr Infusion: 11/25/17 21:15 Dose: 100 mls/hr Admin: 11/25/17 20:45 Dose: 100 mls/hr Infusion: 11/25/17 14:40 Dose: 100 mls/hr Admin: 11/25/17 14:10 Dose: 100 mls/hr Infusion: 11/25/17 10:21 Dose: 100 mls/hr Admin: 11/25/17 09:51 Dose: 100 mls/hr Infusion: 11/25/17 04:19 Dose: 100 mls/hr Admin: 11/25/17 03:49 Dose: 100 mls/hr Infusion: 11/24/17 22:39 Dose: 100 mls/hr Admin: 11/24/17 22:09 Dose: 100 mls/hr Infusion: 11/24/17 18:30 Dose: 100 mls/hr Admin: 11/24/17 18:00 Dose: 100 mls/hr Infusion: 11/24/17 10:24 Dose: 100 mls/hr Admin: 11/24/17 09:54 Dose: 100 mls/hr Infusion: 11/24/17 02:58 Dose: 100 mls/hr Admin: 11/24/17 02:28 Dose: 100 mls/hr Infusion: 11/23/17 20:44 Dose: 100 mls/hr Admin: 11/23/17 20:14 Dose: 100 mls/hr Infusion: 11/23/17 15:36 Dose: 100 mls/hr Admin: 11/23/17 15:06 Dose: 100 mls/hr Infusion: 11/23/17 11:00 Dose: 100 mls/hr Admin: 11/23/17 10:30 Dose: 100 mls/hr Infusion: 11/23/17 03:38 Dose: 100 mls/hr Admin: 11/23/17 03:08 Dose: 100 mls/hr Infusion: 11/22/17 21:11 Dose: 100 mls/hr Admin: 11/22/17 20:41 Dose: 100 mls/hr Infusion: 11/22/17 15:49 Dose: 100 mls/hr Admin: 11/22/17 15:19 Dose: 100 mls/hr Oxycodone HCl (Oxycodone) 10 mg PO Q4H PRN PRN Reason: Abdominal Pain Polyethylene Glycol (Miralax) 17 gm PO DAILY KAREN - Plan Plan (Free Text/Narrative):: Patient's pain much better controlled and he used only a small amount of IV dilaudid yesterday. He had a one time temp of 38.2C which improved with tylenol. He tolerated a clear liquid diet with no nausea or vomiting. He is passing flatus. Sheikh catheter remove and large amount of UOP since. His LFTs are now within normal limits but his bilirubin is increased to 1.6 from 1.2. There is some bile staining in the drain however less than yesterday. Will continue to monitor closely with repeat LFTs at noon. If it keeps increasing will need to transfer him to [place] for further imaging and/or ERCP. 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 IV dilaudid prn and oxycodone. Scheduled flexeril Cards/Pulm: Stable. Continue to encourage IS use. GI: Continue clear liquid diet for now. D/C IVF as patient is taking adequate po. D/C IV protonix and will start po. Renal: UOP adequate. BUN/Cr within normal limits. Mag within normal limits ID: WBC down to 12 from 16. Continue IV zosyn until leukocytosis resolved. Px: Starting heparin sub q.
[2017-11-26] MEDS: Polyethylene Glycol 3350 Powder 17 GM Packet PO SCH (08:37)
[2017-11-26] MEDS: Heparin Sodium 5,000 Units/ML Vial SUBCUT SCH ×2 (09:00→21:25)
[2017-11-26 12:36] LABS: CHLORIDE,CL 103 mmol/L (98-107); SODIUM,NA 137 mmol/L (136-148)
[2017-11-27] MEDS: Piperacillin/Tazobactam 3.375 GM in Sodium Chloride 0.9% 50 ML IV SCH ×2 (03:16→08:44)
[2017-11-27] MEDS: Cyclobenzaprine 5 MG Tab PO SCH (06:16)
[2017-11-27 06:50] LABS: CHLORIDE,CL 106 mmol/L (98-107); SODIUM,NA 140 mmol/L (136-148)
[2017-11-27] MEDS ORDERED: Pantoprazole 40 MG Tab.CR PO SCH (07:30)
[2017-11-27] MEDS: Polyethylene Glycol 3350 Powder 17 GM Packet PO SCH (08:44)
[2017-11-27] MEDS: Heparin Sodium 5,000 Units/ML Vial SUBCUT SCH (08:44)
[2017-11-27] MEDS ORDERED: Cyclobenzaprine 5 MG Tab PO PRN (09:33)
[2017-11-27] MEDS ORDERED: Ciprofloxacin 500 MG Tab PO SCH (09:45)
[2017-11-27] MEDS ORDERED: Ketorolac 10 MG Tab PO PRN (09:52)
[2017-11-27] MEDS: metroNIDAZOLE 250 MG Tab PO SCH ×2 (09:57→15:24)
--- NOTE | 2017-11-27 10:00 | PCM.SURGPN ---
- General Info Date of Service: 11/27/17 Date of Surgery/Procedure: 11/24/17 POD#: 3 Post-Op Diagnosis: Severe, hemorrhagic acute cholecystitis Functional Status: Reports: Pain Controlled, Tolerating Diet, Ambulating, Urinating, Other (NO BM but passing flatus) - Review of Systems General: Reports: No Symptoms Pulmonary: Reports: No Symptoms Cardiovascular: Reports: No Symptoms Gastrointestinal: Reports: No Symptoms Genitourinary: Reports: No Symptoms - Patient Data Vitals - Most Recent: Last Vital Signs Temp 35.7 C 11/27/17 08:00 Pulse 84 11/27/17 08:00 Resp 20 11/27/17 08:00 BP 129/61 11/27/17 08:00 Pulse Ox 96 11/27/17 08:00 Weight - Most Recent: 125.872 kg I&O - Last 24 Hours: Intake & Output 11/26/17 11/27/17 11/27/17 22:59 06:59 14:59 Intake Total 2510 1550 Output Total 3194 7920 Balance -255 -1580 Lab Results Last 24 Hrs: Laboratory Results - last 24 hr 11/26/17 11/27/17 11/27/17 Range/Units 12:07 05:53 05:53 WBC 10.15 (4.0-11.0) K/uL RBC 3.55 L (4.50-5.90) M/uL Hgb 11.2 L (13.0-17.0) g/dL Hct 32.4 L (38.0-50.0) % MCV 91.3 (80.0-98.0) fL MCH 31.5 (27.0-32.0) pg MCHC 34.6 (31.0-37.0) g/dL RDW Std Deviation 45.2 (28.0-62.0) fl RDW Coeff of Royal 13 (11.0-15.0) % Plt Count 251 (150-400) K/uL MPV 9.20 (7.40-12.00) fL Nucleated RBC % 0.0 /100WBC Nucleated RBCs # 0 K/uL Sodium 137 140 (136-148) mmol/L Potassium 3.5 3.1 L (3.5-5.1) mmol/L Chloride 103 106 (98-107) mmol/L Carbon Dioxide 28.8 27.7 (21.0-32.0) mmol/L BUN 4 L 3 L (7.0-18.0) mg/dL Creatinine 0.8 0.7 L (0.8-1.3) mg/dL Est Cr Clr Drug Dosing TNP TNP Estimated GFR (MDRD) > 60.0 > 60.0 ml/min Glucose 92 100 (74-106) mg/dL Calcium 7.9 L 8.4 L (8.5-10.1) mg/dL Phosphorus 2.9 (2.6-4.7) mg/dL Magnesium 1.8 (1.5-2.0) mg/dL Total Bilirubin 1.1 H 0.9 (0.2-1.0) mg/dL AST 39 H 34 (15-37) IU/L ALT 50 46 (14-63) IU/L Alkaline Phosphatase 47 51 (46-116) U/L Total Protein 5.8 L 5.9 L (6.4-8.2) g/dL Albumin 2.5 L 2.4 L (3.4-5.0) g/dL Globulin 3.3 3.5 (2.0-3.5) g/dL Albumin/Globulin Ratio 0.8 L 0.7 L (1.3-2.8) Med Orders - Current: Current Medications Acetaminophen (Tylenol) 325 mg PO Q4H PRN PRN Reason: Fever Last Admin: 11/27/17 09:02 Dose: 325 mg Ciprofloxacin (Ciprofloxacin Hcl) 500 mg PO BID [facility] Cyclobenzaprine HCl (Flexeril) 5 mg PO TID PRN PRN Reason: Muscle Spasm Heparin Sodium (Porcine) (Heparin Sodium) 5,000 units SUBCUT Q12HR [facility] Last Admin: 11/27/17 08:44 Dose: 5,000 units Hydromorphone HCl (Dilaudid) 0.5 mg IVPUSH Q1H PRN PRN Reason: Abdominal Pain Ketorolac Tromethamine (Toradol) 10 mg PO Q6H PRN PRN Reason: Abdominal Pain Stop: 12/02/17 09:53 Metronidazole (Metronidazole) 250 mg PO Q6H [facility] Oxycodone HCl (Oxycodone) 10 mg PO Q4H PRN PRN Reason: Abdominal Pain Polyethylene Glycol (Miralax) 17 gm PO DAILY [facility] Last Admin: 11/27/17 08:44 Dose: 17 gm Senna/Docusate Sodium (Senna Plus) 2 tab PO BID [facility] Discontinued Medications Acetaminophen (Tylenol) 650 mg PO Q6H PRN PRN Reason: Fever Last Admin: 11/26/17 00:30 Dose: 650 mg Aspirin (Aspirin) 324 mg PO ONETIME ONE Stop: 11/22/17 11:47 Last Admin: 11/22/17 12:01 Dose: 324 mg Bupivacaine HCl (Marcaine 0.5%) Confirm Administered Dose 30 ml .ROUTE .STK-MED ONE Stop: 11/24/17 14:48 Bupivacaine HCl (Marcaine 0.5%) Confirm Administered Dose 90 ml .ROUTE .STK-MED ONE Stop: 11/24/17 16:21 Bupivacaine HCl (Marcaine 0.5%) Confirm Administered Dose 30 ml .ROUTE .STK-MED ONE Stop: 11/24/17 16:21 Al Hydroxide/Mg Hydroxide 15 (ml/ Lidocaine HCl 5 ml) 0 ml PO ONETIME ONE Stop: 11/22/17 14:38 Last Admin: 11/22/17 15:31 Dose: Not Given Al Hydroxide/Mg Hydroxide 15 (ml/ Lidocaine HCl 5 ml) 0 ml PO ONETIME ONE Stop: 11/22/17 15:16 Last Admin: 11/22/17 15:27 Dose: 1 each Cyclobenzaprine HCl (Flexeril) 5 mg PO BID [facility] Cyclobenzaprine HCl (Flexeril) 5 mg PO TID [facility] Last Admin: 11/27/17 06:16 Dose: 5 mg Diazepam (Valium) 5 mg IV Q6HR PRN PRN Reason: Muscle Spasm Last Admin: 11/25/17 00:25 Dose: 5 mg Enoxaparin Sodium (Lovenox) 40 mg SUBCUT Q24H [facility] Last Admin: 11/22/17 15:29 Dose: Not Given Fentanyl (Sublimaze) Confirm Administered Dose 250 mcg .ROUTE .STK-MED ONE Stop: 11/24/17 14:31 Fentanyl (Sublimaze) Confirm Administered Dose 100 mcg .ROUTE .STK-MED ONE Stop: 11/24/17 15:23 Fentanyl (Sublimaze) Confirm Administered Dose 100 mcg .ROUTE .STK-MED ONE Stop: 11/24/17 16:42 Fentanyl (Sublimaze) 50 mcg IVPUSH Q5M PRN PRN Reason: Pain (severe 7-10) Stop: 11/25/17 17:54 Gadobenate Dimeglumine (Multihance) 20 ml IVPUSH ONETIME STA Stop: 11/23/17 13:21 Last Admin: 11/23/17 13:30 Dose: 20 ml Glycopyrrolate (Robinul) Confirm Administered Dose 0.2 mg .ROUTE .STK-MED ONE Stop: 11/24/17 16:08 Glycopyrrolate (Robinul) Confirm Administered Dose 0.4 mg .ROUTE .STK-MED ONE Stop: 11/24/17 17:08 Hydromorphone HCl (Dilaudid) 1 mg IVPUSH Q3H PRN PRN Reason: Pain Hydromorphone HCl (Dilaudid) Confirm Administered Dose 2 mg .ROUTE .STK-MED ONE Stop: 11/24/17 17:13 Hydromorphone HCl (Dilaudid Machine Applicator Cementer 6 Mg In Ns 30 Ml) 6 mg IV ASDIRECTED PRN; Protocol PRN Reason: Abdominal Pain Last Admin: 11/25/17 11:52 Dose: 6 mg Sodium Chloride (Normal Saline) 1,000 mls @ 999 mls/hr IV STAT ONE Stop: 11/22/17 12:46 Last Admin: 11/22/17 12:02 Dose: 999 mls/hr Sodium Chloride (Normal Saline) 1,000 mls @ 125 mls/hr IV STAT KAREN Last Admin: 11/22/17 14:08 Dose: 125 mls/hr Piperacillin Sod/Tazobactam (Sod 3.375 gm/ Sodium Chloride) 50 mls @ 100 mls/ hr IV Q6H [facility] Last Admin: 11/27/17 08:44 Dose: 100 mls/hr Sodium Chloride (Normal Saline) 1,000 mls @ 200 mls/hr IV ASDIRECTED KAREN Last Infusion: 11/25/17 12:00 Dose: Infused Sodium Chloride (Normal Saline) 1,000 mls @ 1,000 mls/hr IV ASDIRECTED KAREN Last Admin: 11/24/17 18:53 Dose: 1,000 mls/hr Magnesium Sulfate 4 gm/ Premix 100 mls @ 50 mls/hr IV ONETIME ONE Stop: 11/25/17 09:10 Last Admin: 11/25/17 07:43 Dose: 50 mls/hr Sodium Chloride (Normal Saline) 1,000 mls @ 100 mls/hr IV ASDIRECTED KAREN Last Admin: 11/25/17 20:46 Dose: 100 mls/hr Iopamidol (Isovue Multipack-370 (76%)) 100 ml IVPUSH ONETIME STA Stop: 11/22/17 13:08 Last Admin: 11/22/17 13:08 Dose: 100 ml Ketorolac Tromethamine (Toradol) 30 mg IVPUSH ONETIME ONE Stop: 11/22/17 13:52 Last Admin: 11/22/17 14:08 Dose: 30 mg Ketorolac Tromethamine (Toradol) 15 mg IVPUSH Q6H PRN PRN Reason: Pain Stop: 11/27/17 15:21 Last Admin: 11/23/17 20:27 Dose: 15 mg Labetalol HCl (Normodyne) Confirm Administered Dose 100 mg .ROUTE .STK-MED ONE Stop: 11/24/17 15:47 Lidocaine HCl (Xylocaine-Mpf 1%) Confirm Administered Dose 5 ml .ROUTE .STK-MED ONE Stop: 11/24/17 14:14 Midazolam HCl (Versed 1 Mg/Ml) Confirm Administered Dose 2 mg .ROUTE .STK-MED ONE Stop: 11/24/17 14:14 Midazolam HCl (Versed 1 Mg/Ml) Confirm Administered Dose 2 mg .ROUTE .STK-MED ONE Stop: 11/24/17 14:31 Morphine Sulfate (Morphine) 2 mg IVPUSH ONETIME ONE Stop: 11/22/17 11:47 Last Admin: 11/22/17 13:06 Dose: Not Given Neostigmine Methylsulfate (Neostigmine) Confirm Administered Dose 5 mg .ROUTE .STK-MED ONE Stop: 11/24/17 17:08 Nitroglycerin (Nitrostat) 0.4 mg SL Q5M PRN PRN Reason: Chest Pain Last Admin: 11/22/17 12:24 Dose: 0.4 mg Ondansetron HCl (Zofran) Confirm Administered Dose 4 mg .ROUTE .STK-MED ONE Stop: 11/24/17 14:31 Pantoprazole Sodium (Protonix Iv) 80 mg IVPUSH .BOLUS ONE Stop: 11/22/17 11:47 Last Admin: 11/22/17 12:02 Dose: 80 mg Pantoprazole Sodium (Protonix Iv) 40 mg IVPUSH DAILY [facility] Last Admin: 11/25/17 09:36 Dose: 40 mg Pantoprazole Sodium (Protonix) 40 mg PO ACBREAKFAST [facility] Last Admin: 11/27/17 06:31 Dose: 40 mg Propofol (Diprivan 20 Ml) Confirm Administered Dose 200 mg .ROUTE .STK-MED ONE Stop: 11/24/17 14:31 Rocuronium [place] (Zemuron) Confirm Administered Dose 100 mg .ROUTE .STK-MED ONE Stop: 11/24/17 14:31 Succinylcholine Chloride (Quelicin) Confirm Administered Dose 200 mg .ROUTE .STK -MED ONE Stop: 11/24/17 14:31 Temazepam (Restoril) 15 mg PO BEDTIME PRN PRN Reason: Sleep Last Admin: 11/24/17 00:18 Dose: 15 mg - Exam Wound/Incisions: Healing Well, No Drainage, Other (There is andra-incisional echymosis and some redness ) General: Alert, Oriented HEENT: Pupils Equal Lungs: Normal Respiratory Effort Cardiovascular: Regular Rate GI/Abdominal Exam: Soft, Non-Tender, No Distention, No Mass, Other (Drain with minimal bile-stained serous drainage) - Problem List & Annotations (1) Epigastric pain SNOMED Code(s): 83975475 Code(s): R10.13 - EPIGASTRIC PAIN Status: Acute Current Visit: Yes (2) Acute cholecystitis due to biliary calculus SNOMED Code(s): 40233555486293 Code(s): K80.00 - CALCULUS OF GALLBLADDER W ACUTE CHOLECYST W/O OBSTRUCTION Status: Acute Current Visit: Yes - Problem List Review Problem List Initiated/Reviewed/Updated: Yes - My Orders Last 24 Hours: Active Orders 24 hr Category Date Time Status May Shower [RC] ASDIRECTED Care 11/27/17 09:30 Ordered Regular Diet [DIET] Diet 11/27/17 Lunch Ordered COMPREHENSIVE METABOLIC PN,CMP [CHEM] AM Lab 11/28/17 05:11 Ordered MAGNESIUM [CHEM] AM Lab 11/28/17 05:11 Ordered PHOSPHORUS [CHEM] AM Lab 11/28/17 05:11 Ordered Ciprofloxacin [Ciprofloxacin HCl] Med 11/27/17 09:45 Ordered 500 mg PO BID Cyclobenzaprine [Flexeril] Med 11/27/17 09:33 Ordered 5 mg PO TID PRN Docusate Sodium/Sennosides [Senna Plus] Med 11/27/17 09:45 Ordered 2 tab PO BID Heparin Sodium Med 11/26/17 09:00 Active 5,000 units SUBCUT Q12HR Ketorolac [Toradol] Med 11/27/17 09:52 Ordered 10 mg PO Q6H PRN Polyethylene Glycol 3350 [MiraLAX] Med 11/26/17 09:00 Active 17 gm PO DAILY metroNIDAZOLE Med 11/27/17 09:45 Ordered 250 mg PO Q6H Medication Orders Acetaminophen (Tylenol) 325 mg PO Q4H PRN PRN Reason: Fever Last Admin: 11/27/17 09:02 Dose: 325 mg Ciprofloxacin (Ciprofloxacin Hcl) 500 mg PO BID KAREN Cyclobenzaprine HCl (Flexeril) 5 mg PO TID PRN PRN Reason: Muscle Spasm Heparin Sodium (Porcine) (Heparin Sodium) 5,000 units SUBCUT Q12HR [facility] Last Admin: 11/27/17 08:44 Dose: 5,000 units Admin: 11/26/17 21:25 Dose: 5,000 units Admin: 11/26/17 09:00 Dose: 5,000 units Hydromorphone HCl (Dilaudid) 0.5 mg IVPUSH Q1H PRN PRN Reason: Abdominal Pain Ketorolac Tromethamine (Toradol) 10 mg PO Q6H PRN PRN Reason: Abdominal Pain Stop: 12/02/17 09:53 Metronidazole (Metronidazole) 250 mg PO Q6H KAREN Oxycodone HCl (Oxycodone) 10 mg PO Q4H PRN PRN Reason: Abdominal Pain Polyethylene Glycol (Miralax) 17 gm PO DAILY [facility] Last Admin: 11/27/17 08:44 Dose: 17 gm Admin: 11/26/17 08:37 Dose: 17 gm Senna/Docusate Sodium (Senna Plus) 2 tab PO BID [facility] - Plan Plan (Free Text/Narrative):: -Patient does not want to take narcotics. Added toradol 10mg q 6hr prn. Flexeril 5mg TID prn. -Diet: Advance to regular -Add senna to promote BM -WBC normal. Incisions do not appear infected but will continue to monitor redness around wounds. This looks more like bruising. Switch from IV zosyn to oral cipro/flagyl. -Drain output still ongoing. Will keep drain for now. Will monitor output today. If <50ml over next 8 hours will remove this evening. -D/C this evening or tomorrow am
--- NOTE | 2017-11-27 17:57 | PCM.DCSUM1 ---
Discharge Summary - Hospital Course Free Text/Narrative:: Patient is a 42 year old male who presented with nausea vomiting and abdominal pain. His WBC was 16K. CT showed cholelithiaisis with no evidence of cholecystitis. He was admitted to the medicine team. A RUQ US showed large gallstones with a thickened GB wall. The next day his bilirubin had increased so an MRCP was done that confirmed acute cholecystitis. His WBC did not decrease despite IV antibiotics. Clinically he felt better. The decision was made to go to [facility] OR. His gallbladder was grossly distended inflamed and hemorrhagic. He was converted from laparoscopic to open. This was a difficult procedure open and my partner had to come assist. The gallbladder was safely removed and the patient admited to the ICU due to a large blood loss and poor UOP during the case. He did well. UOP picked up and hgb stayed stable. He was transitioned from IV to po pain medications. The patient requested toradol for pain as narcotics did not give him much releif. He was transitioned from clears to a regular diet without difficulty. He was passing flatus and ambulating without difficulty. His drain output decreased and was able to be removed today. He was cleared for discharge. - Discharge Data Discharge Date: 11/27/17 Discharge Disposition: Home, Self-Care 01 Condition: Stable - Discharge Diagnosis/Problem(s) (1) Epigastric pain SNOMED Code(s): 89966193 ICD Code: R10.13 - EPIGASTRIC PAIN Status: Acute (2) Acute cholecystitis due to biliary calculus SNOMED Code(s): 69112106857340 ICD Code: K80.00 - CALCULUS OF GALLBLADDER W ACUTE CHOLECYST W/O OBSTRUCTION Status: Acute - Patient Summary/Data Operative Procedure(s) Performed: laparoscopic converted to open cholecystectomy - Patient Instructions Diet: Regular Diet as Tolerated Activity: No Lifting Over 20 Pounds (for six weeks ), Rest and Relax Today Driving: Do Not Drive (for one week ) Showering/Bathing: May Shower, No Tub Bathing/Swimming (two weeks ) Wound/Incision Care: Keep Operative Site/Wound Site Clean and Dry Notify Provider of: Fever, Increased Pain, Swelling and Redness, Drainage, Nausea and/or Vomiting - Discharge Plan Prescriptions/Med Rec: Ciprofloxacin [IJD: Ciprofloxacin HCl] 500 mg PO BID #8 tablet Cyclobenzaprine [Flexeril] 5 mg PO TID PRN #36 tab PRN Reason: Muscle Spasm metroNIDAZOLE 250 mg PO Q6H #16 tablet Home Medications: Home Meds Ciprofloxacin [IJD: Ciprofloxacin HCl] 500 mg PO BID #8 tablet 11/27/17 [Rx] Cyclobenzaprine [Flexeril] 5 mg PO TID PRN #36 tab 11/27/17 [Rx] metroNIDAZOLE 250 mg PO Q6H #16 tablet 11/27/17 [Rx] Patient Handouts: Cyclobenzaprine tablets, Laparoscopic Cholecystectomy, Care After, [id number], Ciprofloxacin tablets, Metronidazole tablets or capsules Referrals: Manda Mendes MD [Physician] - - Discharge Summary/Plan Comment DC Time >30 min.: No - General Info Functional Status: Reports: Pain Controlled, Tolerating Diet, Ambulating, Urinating - Review of Systems General: Reports: No Symptoms Pulmonary: Reports: No Symptoms Cardiovascular: Reports: No Symptoms Gastrointestinal: Reports: No Symptoms - Patient Data Vitals - Most Recent: Last Vital Signs Temp 35.9 C 11/27/17 16:00 Pulse 78 11/27/17 16:00 Resp 20 11/27/17 16:00 BP 118/69 11/27/17 16:00 Pulse Ox 98 11/27/17 16:00 Weight - Most Recent: 125.872 kg I&O - Last 24 hours: Intake & Output 11/27/17 11/27/17 11/27/17 06:59 14:59 22:59 Intake Total 1550 1870 Output Total 3130 2970 Balance -1580 -1100 Lab Results - Last 24 hrs: Laboratory Results - last 24 hr 11/27/17 11/27/17 Range/Units 05:53 05:53 WBC 10.15 (4.0-11.0) K/uL RBC 3.55 L (4.50-5.90) M/uL Hgb 11.2 L (13.0-17.0) g/dL Hct 32.4 L (38.0-50.0) % MCV 91.3 (80.0-98.0) fL MCH 31.5 (27.0-32.0) pg MCHC 34.6 (31.0-37.0) g/dL RDW Std Deviation 45.2 (28.0-62.0) fl RDW Coeff of Royal 13 (11.0-15.0) % Plt Count 251 (150-400) K/uL MPV 9.20 (7.40-12.00) fL Nucleated RBC % 0.0 /100WBC Nucleated RBCs # 0 K/uL Sodium 140 (136-148) mmol/L Potassium 3.1 L (3.5-5.1) mmol/L Chloride 106 (98-107) mmol/L Carbon Dioxide 27.7 (21.0-32.0) mmol/L BUN 3 L (7.0-18.0) mg/dL Creatinine 0.7 L (0.8-1.3) mg/dL Est Cr Clr Drug Dosing TNP Estimated GFR (MDRD) > 60.0 ml/min Glucose 100 (74-106) mg/dL Calcium 8.4 L (8.5-10.1) mg/dL Phosphorus 2.9 (2.6-4.7) mg/dL Magnesium 1.8 (1.5-2.0) mg/dL Total Bilirubin 0.9 (0.2-1.0) mg/dL AST 34 (15-37) IU/L ALT 46 (14-63) IU/L Alkaline Phosphatase 51 (46-116) U/L Total Protein 5.9 L (6.4-8.2) g/dL Albumin 2.4 L (3.4-5.0) g/dL Globulin 3.5 (2.0-3.5) g/dL Albumin/Globulin Ratio 0.7 L (1.3-2.8) Med Orders - Current: Current Medications Acetaminophen (Tylenol) 325 mg PO Q4H PRN PRN Reason: Fever Last Admin: 11/27/17 09:02 Dose: 325 mg Ciprofloxacin (Ciprofloxacin Hcl) 500 mg PO BID KAREN Last Admin: 11/27/17 09:57 Dose: 500 mg Cyclobenzaprine HCl (Flexeril) 5 mg PO TID PRN PRN Reason: Muscle Spasm Last Admin: 11/27/17 12:58 Dose: 5 mg Heparin Sodium (Porcine) (Heparin Sodium) 5,000 units SUBCUT Q12HR KAREN Last Admin: 11/27/17 08:44 Dose: 5,000 units Hydromorphone HCl (Dilaudid) 0.5 mg IVPUSH Q1H PRN PRN Reason: Abdominal Pain Ketorolac Tromethamine (Toradol) 10 mg PO Q6H PRN PRN Reason: Abdominal Pain Stop: 12/02/17 09:53 Last Admin: 11/27/17 12:58 Dose: 10 mg Metronidazole (Metronidazole) 250 mg PO Q6H [facility] Last Admin: 11/27/17 15:24 Dose: 250 mg Oxycodone HCl (Oxycodone) 10 mg PO Q4H PRN PRN Reason: Abdominal Pain Polyethylene Glycol (Miralax) 17 gm PO DAILY [facility] Last Admin: 11/27/17 08:44 Dose: 17 gm Senna/Docusate Sodium (Senna Plus) 2 tab PO BID [facility] Last Admin: 11/27/17 09:57 Dose: 2 tab Discontinued Medications Acetaminophen (Tylenol) 650 mg PO Q6H PRN PRN Reason: Fever Last Admin: 11/26/17 00:30 Dose: 650 mg Aspirin (Aspirin) 324 mg PO ONETIME ONE Stop: 11/22/17 11:47 Last Admin: 11/22/17 12:01 Dose: 324 mg Bupivacaine HCl (Marcaine 0.5%) Confirm Administered Dose 30 ml .ROUTE .STK-MED ONE Stop: 11/24/17 14:48 Bupivacaine HCl (Marcaine 0.5%) Confirm Administered Dose 90 ml .ROUTE .STK-MED ONE Stop: 11/24/17 16:21 Bupivacaine HCl (Marcaine 0.5%) Confirm Administered Dose 30 ml .ROUTE .STK-MED ONE Stop: 11/24/17 16:21 Al Hydroxide/Mg Hydroxide 15 (ml/ Lidocaine HCl 5 ml) 0 ml PO ONETIME ONE Stop: 11/22/17 14:38 Last Admin: 11/22/17 15:31 Dose: Not Given Al Hydroxide/Mg Hydroxide 15 (ml/ Lidocaine HCl 5 ml) 0 ml PO ONETIME ONE Stop: 11/22/17 15:16 Last Admin: 11/22/17 15:27 Dose: 1 each Cyclobenzaprine HCl (Flexeril) 5 mg PO BID [facility] Cyclobenzaprine HCl (Flexeril) 5 mg PO TID [facility] Last Admin: 11/27/17 06:16 Dose: 5 mg Diazepam (Valium) 5 mg IV Q6HR PRN PRN Reason: Muscle Spasm Last Admin: 11/25/17 00:25 Dose: 5 mg Enoxaparin Sodium (Lovenox) 40 mg SUBCUT Q24H KAREN Last Admin: 11/22/17 15:29 Dose: Not Given Fentanyl (Sublimaze) Confirm Administered Dose 250 mcg .ROUTE .STK-MED ONE Stop: 11/24/17 14:31 Fentanyl (Sublimaze) Confirm Administered Dose 100 mcg .ROUTE .STK-MED ONE Stop: 11/24/17 15:23 Fentanyl (Sublimaze) Confirm Administered Dose 100 mcg .ROUTE .STK-MED ONE Stop: 11/24/17 16:42 Fentanyl (Sublimaze) 50 mcg IVPUSH Q5M PRN PRN Reason: Pain (severe 7-10) Stop: 11/25/17 17:54 Gadobenate Dimeglumine (Multihance) 20 ml IVPUSH ONETIME STA Stop: 11/23/17 13:21 Last Admin: 11/23/17 13:30 Dose: 20 ml Glycopyrrolate (Robinul) Confirm Administered Dose 0.2 mg .ROUTE .STK-MED ONE Stop: 11/24/17 16:08 Glycopyrrolate (Robinul) Confirm Administered Dose 0.4 mg .ROUTE .STK-MED ONE Stop: 11/24/17 17:08 Hydromorphone HCl (Dilaudid) 1 mg IVPUSH Q3H PRN PRN Reason: Pain Hydromorphone HCl (Dilaudid) Confirm Administered Dose 2 mg .ROUTE .STK-MED ONE Stop: 11/24/17 17:13 Hydromorphone HCl (Dilaudid [employer] 6 Mg In Ns 30 Ml) 6 mg IV ASDIRECTED PRN; Protocol PRN Reason: Abdominal Pain Last Admin: 11/25/17 11:52 Dose: 6 mg Sodium Chloride (Normal Saline) 1,000 mls @ 999 mls/hr IV STAT ONE Stop: 11/22/17 12:46 Last Admin: 11/22/17 12:02 Dose: 999 mls/hr Sodium Chloride (Normal Saline) 1,000 mls @ 125 mls/hr IV STAT KAREN Last Admin: 11/22/17 14:08 Dose: 125 mls/hr Piperacillin Sod/Tazobactam (Sod 3.375 gm/ Sodium Chloride) 50 mls @ 100 mls/ hr IV Q6H [facility] Last Admin: 11/27/17 08:44 Dose: 100 mls/hr Sodium Chloride (Normal Saline) 1,000 mls @ 200 mls/hr IV ASDIRECTED [facility] Last Infusion: 11/25/17 12:00 Dose: Infused Sodium Chloride (Normal Saline) 1,000 mls @ 1,000 mls/hr IV ASDIRECTED [facility] Last Admin: 11/24/17 18:53 Dose: 1,000 mls/hr Magnesium Sulfate 4 gm/ Premix 100 mls @ 50 mls/hr IV ONETIME ONE Stop: 11/25/17 09:10 Last Admin: 11/25/17 07:43 Dose: 50 mls/hr Sodium Chloride (Normal Saline) 1,000 mls @ 100 mls/hr IV ASDIRECTED [facility] Last Admin: 11/25/17 20:46 Dose: 100 mls/hr Iopamidol (Isovue Multipack-370 (76%)) 100 ml IVPUSH ONETIME STA Stop: 11/22/17 13:08 Last Admin: 11/22/17 13:08 Dose: 100 ml Ketorolac Tromethamine (Toradol) 30 mg IVPUSH ONETIME ONE Stop: 11/22/17 13:52 Last Admin: 11/22/17 14:08 Dose: 30 mg Ketorolac Tromethamine (Toradol) 15 mg IVPUSH Q6H PRN PRN Reason: Pain Stop: 11/27/17 15:21 Last Admin: 11/23/17 20:27 Dose: 15 mg Labetalol HCl (Normodyne) Confirm Administered Dose 100 mg .ROUTE .STK-MED ONE Stop: 11/24/17 15:47 Lidocaine HCl (Xylocaine-Mpf 1%) Confirm Administered Dose 5 ml .ROUTE .STK-MED ONE Stop: 11/24/17 14:14 Midazolam HCl (Versed 1 Mg/Ml) Confirm Administered Dose 2 mg .ROUTE .STK-MED ONE Stop: 11/24/17 14:14 Midazolam HCl (Versed 1 Mg/Ml) Confirm Administered Dose 2 mg .ROUTE .STK-MED ONE Stop: 11/24/17 14:31 Morphine Sulfate (Morphine) 2 mg IVPUSH ONETIME ONE Stop: 11/22/17 11:47 Last Admin: 11/22/17 13:06 Dose: Not Given Neostigmine Methylsulfate (Neostigmine) Confirm Administered Dose 5 mg .ROUTE .STK-MED ONE Stop: 11/24/17 17:08 Nitroglycerin (Nitrostat) 0.4 mg SL Q5M PRN PRN Reason: Chest Pain Last Admin: 11/22/17 12:24 Dose: 0.4 mg Ondansetron HCl (Zofran) Confirm Administered Dose 4 mg .ROUTE .STK-MED ONE Stop: 11/24/17 14:31 Pantoprazole Sodium (Protonix Iv) 80 mg IVPUSH .BOLUS ONE Stop: 11/22/17 11:47 Last Admin: 11/22/17 12:02 Dose: 80 mg Pantoprazole Sodium (Protonix Iv) 40 mg IVPUSH DAILY KAREN Last Admin: 11/25/17 09:36 Dose: 40 mg Pantoprazole Sodium (Protonix) 40 mg PO ACBREAKFAST KAREN Last Admin: 11/27/17 06:31 Dose: 40 mg Propofol (Diprivan 20 Ml) Confirm Administered Dose 200 mg .ROUTE .STK-MED ONE Stop: 11/24/17 14:31 Rocuronium [place] (Zemuron) Confirm Administered Dose 100 mg .ROUTE .STK-MED ONE Stop: 11/24/17 14:31 Succinylcholine Chloride (Quelicin) Confirm Administered Dose 200 mg .ROUTE .STK -MED ONE Stop: 11/24/17 14:31 Temazepam (Restoril) 15 mg PO BEDTIME PRN PRN Reason: Sleep Last Admin: 11/24/17 00:18 Dose: 15 mg - Exam General: Reports: Alert, Oriented Lungs: Reports: Normal Respiratory Effort Cardiovascular: Reports: Regular Rate GI/Abdominal Exam: Soft, Non-Tender, No Distention, No Mass Back Exam: Reports: Normal Inspection Extremities: Normal Inspection Skin: Reports: Warm, Dry, Intact Wound/Incisions: Reports: Healing Well Neurological: Reports: No New Focal Deficit Psy/Mental Status: Reports: Alert, Normal Affect, Normal Mood *Q Meaningful Use (DIS) - VTE *Q VTE Criteria *Q: - Stroke *Q Stroke Criteria *Q: - AMI *Q AMI Criteria *Q:
[2017-11-27] MEDS ORDERED: Cyclobenzaprine 5 MG Tab PO ONE (18:21)
[2017-11-27] MEDS ORDERED: metroNIDAZOLE 250 MG Tab PO ONE (18:28)
[2017-11-27] MEDS ORDERED: Ciprofloxacin 500 MG Tab PO ONE (18:28)
== END 2017-11-27 18:48 | disposition home or self-care (01) | DRG 262 ==
LOC: MW.ED 11:36 → MW.MS 14:03 → MW.ICU 11-24 17:49 → OBSVTOIN 11-24 17:49 → MW.MS 11-26 21:02
PROVIDERS: ADMIT Surgery; ATTEND Surgery
PROC: 0FT40ZZ Resection of Gallbladder, Open Approach (ICD-10-PCS; principal; 2017-11-24)
PROC: 0FJ44ZZ Inspection of Gallbladder, Percutaneous Endoscopic Approach (ICD-10-PCS; 2017-11-24)
DX: K80.42 Calculus of bile duct with acute cholecystitis without obstruction (principal); F17.200 Nicotine dependence, unspecified, uncomplicated
CPT/HCPCS: 00790; 36415; 71045; 71045-26; 74177; 74177-26; 74183; 74183-26; 76705; 76705-26; 80053; 81001; 82565; 83690; 83735; 84100; 84484; 84520; 85025; 85027; 86677; 88304; 93005; 96361; 96365; 96374; 96375; 96376; 99283; 99285-25; A9270-GY; A9577; C9113; G0378; J0330; J1170; J1644; J1650; J1885; J2250; J2405; J2543; J2704; J3010; J3475; J7040; J7050; Q9967